=== PATIENT | male | born 1950 | race Caucasian/White ===

== ENCOUNTER 2020-03-19 10:06 | Inpatient (IN) | payer OTHER, MEDICARE ==
[2020-03-19] MEDS ORDERED: Milk Of Magnesia 30 ML UDCUP PO PRN (12:56)
[2020-03-19] MEDS ORDERED: Electrolyte Replacement Protoc 1 EACH EACH IVPB ONE (12:56)
[2020-03-19] MEDS ORDERED: Ondansetron PF 4 MG/2 ML Vial IVP PRN (12:56)
[2020-03-19] MEDS ORDERED: Bisacodyl 10 MG SUPP PR PRN (12:56)
[2020-03-19] MEDS ORDERED: Docusate 100 MG CAP PO PRN (12:56)
[2020-03-19] MEDS ORDERED: Electrolyte Replacement Protocol FS PRN (13:30)
[2020-03-19] MEDS: hydrALAZINE 20 MG/ML VIAL SLOW IVP PRN (13:46)
[2020-03-19] MEDS: Sodium Chloride 0.9% 1,000 ML IV SCH (13:46)
[2020-03-19] MEDS: niCARdipine 25 MG in Sodium Chloride 0.9% 250 ML 250 ML IVPB PRN ×2 (13:51→22:56)
--- NOTE | 2020-03-19 15:29 | CT ---
CT BRAIN WITHOUT CONTRAST: 03/19/20 HISTORY: Intracerebral hemorrhagic stroke. COMPARISON: earlier exam same date 9:49 am FINDINGS: There is continued acute intraventricular hemorrhage with probable extension into the left frontal lo be and basal ganglia. Associated mild obstructive hydrocephalus is again seen. No new areas of hemorr dana are noted. There has been interval worsening of midline shift to the right currently measuring 7 mm compared to 5 mm on the earlier exam of 9:49 a.m. from the same date. IMPRESSION: Mild interval worsening of subfalcine herniation since earlier exam of same date. POS: VERONICADI
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
[2020-03-19] MEDS: Diltiazem 125 MG in Sodium Chloride 0.9% 100 ML IVPB SCH (18:13)
[2020-03-19] MEDS ORDERED: Loratadine 10 MG TAB PO PRN (18:25)
[2020-03-19] MEDS: Famotidine/PF 20 mg/2ml Vial SLOW IVP SCH (22:56)
[2020-03-20] MEDS: Sodium Chloride 0.9% 1,000 ML IV SCH ×2 (03:12→15:46)
[2020-03-20 03:58] LABS: #Lymphocytes 1.3 thou/uL (1.20-3.40); #Monocytes 1.2 thou/uL (0.11-0.59); #Neutrophils 8.8 thou/uL (1.40-6.50); %Basophils 0.3 % (0.0-1.0); %Eosinophils 0.4 % (0.0-10.0); %Lymphocytes 11.2 % (21.0-51.0); %Monocytes 10.9 % (0.0-10.0); %Neutrophils 77.2 % (42.0-75.0); Hemoglobin 14.6 g/dL (14.0-18.0); Mean Corpuscular HGB CONC 32.5 g/dL (32.0-36.0); Mean Corpuscular Hemoglobin 30.9 pg (27.0-31.0); Mean Corpuscular Volume 94.9 fL (78.0-98.0); Mean Platelet Volume 9.3 fL (7.4-10.4); Platelet Count 136 thou/uL (130-400); RBC Distribution Width 11.5 % (11.5-14.5); Red Blood Cell (RBC) Count 4.74 mill/uL (4.70-6.10); White Blood Cell (WBC) Count 11.4 thou/uL (4.8-10.8)
[2020-03-20 05:21] LABS: Anion Gap 12 mmol/L (10-20); BUN (Urea Nitrogen) 19 mg/dL (8.4-25.7); Calc. Creatinine Clearance 121 mL/min (70-130); Calcium 8.5 mg/dL (7.8-10.44); Carbon Dioxide 22 mmol/L (23-31); Chloride 104 mmol/L (98-107); Estimated GFR-MDRD Greater than 90; Glucose 127 mg/dL (80-115); Potassium 3.8 mmol/L (3.5-5.1); Sodium 134 mmol/L (136-145)
--- NOTE | 2020-03-20 05:50 | HP ---
HISTORY OF PRESENT ILLNESS: Mr. Aguilera is a 69-year-old man transferred over to [facility] directly admitting to the ICU from [facility] for sudden onset of confusion and CT showing a large intraventricular hemorrhage cast in the near total left lateral ventricle, 3rd ventricle, and 4th ventricles with very early signs of potential hydrocephalus reported by the ER physician at [facility]. The patient came in at the request of his cloth spreader, as the patient had onset of confusion after recently being diagnosed with atrial fibrillation and started Eliquis and Cardizem and one other medication that is unspecified. He obliged and this is where his intracranial hemorrhage was found. PAST MEDICAL HISTORY: Significant for atrial fibrillation and hypertension. PAST SURGICAL HISTORY: Includes unspecified elbow, shoulder, and cataracts. SOCIAL HISTORY: The patient drinks socially daily. Denies drug use. Currently smokes cigarettes daily, 30-year history of half pack a day. ALLERGIES: NO KNOWN DRUG ALLERGIES. CURRENT MEDICATIONS: 1. Diltiazem. 2. Multaq. 3. Eliquis. PHYSICAL EXAMINATION: VITAL SIGNS: The patient's blood pressure upon arrival was 170/99, this is now done at bedside at 168/80. GENERAL: He is alert, oriented to his name, date of , and knows that he is in the hospital. He does not recall much of this morning's events. He has excellent strength in bilateral upper and lower extremities in all movements. No that I can discern. HEENT: Pupils are equally round and reactive to light. Extraocular movements are intact. PSYCHIATRIC: Speech is fluid and uninhibited. I would rate his GCS at 14 given confusion. ASSESSMENT: Acute intraventricular hemorrhage and altered mental status. PLAN: At this time, we will need to hold the Xarelto and Eliquis indefinitely. Head of bed will need to be elevated to 30 degrees. We will repeat a CT scan at 1400 today to evaluate and stay on top of potential developing hydrocephalus. He will need to remain n.p.o. probably until at least tomorrow. Dysphagia screen will need to be administered at bedside. We will initiate Cardene, titrating to systolic pressures below 140. We will also initiate some p.r.n. blood pressure medications as we try to wean off the Cardene. I did have a discussion with the patient and later his regarding potential need for external ventricular catheter and in case that he does develop acute obstructive hydrocephalus secondary to this hemorrhage. The patient and understand. My hope is that we will not have to do this, but it is a very real possibility, particularly in the next 48 hours. We will likely repeat another scan in the morning to continue track progress of both his ventricular size and hemorrhage development or resolution and adjust plan based on the above findings. Q.1 hour neuro checks for now. Plan will be discussed with Dr. Keyes. We will also consult our colleagues in Critical Care and Inpatient Medicine. Job ID: [id number]
--- NOTE | 2020-03-20 07:12 | CT ---
PRELIMINARY REPORT/[facility]/EMERGENCY AFTER HOURS PROCEDURE This report was discussed with Freda Patel RN by Osiris Candelaria on Mar 20, 2020 03:33:00 CDT. Addendum electronically signed by Osiris Candelaria on March 20, 2020 3:34:39 AM CDT EXAM: CT Head Without Intravenous Contrast. CLINICAL HISTORY: Follow up ICH TECHNIQUE: Axial computed tomography images of the head/brain without intravenous contrast. COMPARISON: CTSR - CT BRAIN WO CON - 03/19/2020 02:58 PM CDT FINDINGS: BRAIN: Unchanged edematous swelling of the left frontal lobe at the anterior cranial fossa creating mild mas s-effect on the suprasellar cistern. Slightly worsened rightward midline shift measuring 9 mm, previously 6 mm without evidence of subfalc ine herniation at this time. VENTRICLES: Unchanged amount of intraventricular hemorrhage primarily affecting the left lateral ventricle with a dditional blood products in the right lateral ventricle and the occipital horn and near the foramen of Santiago. Additional unchanged hemorrhage within the third and fourth ventricles. Unchanged asymmetric dilatation of the left lateral ventricle and temporal horns with periventricular hypodense edema surrounding the frontal horn of the left lateral ventricle. ORBITS: The orbits are unremarkable. SINUSES AND MASTOIDS: The paranasal sinuses and mastoid air cells are clear. SOFT TISSUES: No significant facial or scalp soft tissue swelling evident. No radiopaque foreign body is seen. BONES: No acute skull fracture. IMPRESSION: 1. Slightly increased rightward midline shift by proximal 3 mm without evidence of herniation. 2. Unchanged intraventricular hemorrhage and resulting hydrocephalus detailed above. ELECTRONICALLY SIGNED BY: Brandon Jones DO Mar 20, 2020 3:23:26 AM CDT This report is intended for review by the ordering physician only, in accordance of law. If you recei ve this report in error, please call [facility] at [phone]. FINAL REPORT Exam: Head CT without contrast HISTORY: Follow-up intracranial hemorrhage COMPARISON: 03/19/2020 FINDINGS: Hemorrhage: Stable intraventricular hemorrhage. Brain parenchyma: Cortical varela-white matter differentiation is preserved. No mass effect or midline shift. Basilar cisterns are patent. Ventricular system: Stable dilatation of ventricular system. Stable rightward deviation of the fronta l horn of the lateral ventricle secondary to asymmetric hemorrhage in the left ventricular system. Calvarium: Intact. Sinuses and mastoid air cells: Adequate aeration. IMPRESSION: 1. This report is in agreement with initial report by [facility]. 2. Stable intraventricular hemorrhage. Stable hydrocephalus. Transcribed Date/Time: 03/20/2020 8:27 AM
--- NOTE | 2020-03-20 08:07 | PRG ---
DATE OF SERVICE: SUBJECTIVE: The patient is about the same as he was yesterday. He did develop atrial fibrillation, was put on a Cardizem drip. It looks like to me he has developed a second-degree type 1 heart block. OBJECTIVE: VITAL SIGNS: Temperature 98.1, pulse 78, blood pressure 127/60, O2 saturation 97%. Intake 1737, output 1482. HEENT: Unremarkable. NECK: No adenopathy or JVD. LUNGS: Clear anteriorly. CARDIAC: S1, S2, irregular. ABDOMEN: Soft. EXTREMITIES: No edema. NEUROLOGICAL: His muscle strength is equal throughout. IMAGING STUDIES: His brain CT demonstrates stable intraventricular hemorrhage. ASSESSMENT: 1. Brain bleed. 2. Cardiac arrhythmia-question second-degree type 1 heart block. RECOMMENDATIONS: 1. Decrease Cardizem drip to 5 mg an hour. 2. Hypertensive control per Internal Medicine. 3. Can transfer out of floor when okay with Neurosurgery. Job ID: [id number]
--- NOTE | 2020-03-20 08:30 | PRG ---
DATE OF SERVICE: 03/20/2020 Mr. Aguilera again was admitted yesterday for acute intraventricular hemorrhage. Repeat CT scan early this morning around 3 a.m. reveals again some slight interval changes compared to the CT before that, which again was a change from the CT yet before then itself. He has had some marginal progression and some expansion of the left lateral ventricle, which will need to continue to keep a close eye on, but his neurologic status continues to be stable. He is able to tell me his name, his date of , the day of the week, the year. He recognizes he is in the hospital, but is unable to tell me where exactly he is in and admits that he does not know. Some of this very likely could represent some expressive aphasia. There was a concern overnight about pupil irregularity or asymmetry. To me at bedside, pupils appear to be equal in size with some slight difference in light reaction. He does have a dense cataract in the left eye, perhaps this reduces the briskness of his pupillary response, so I am not terribly concerned about this. He is able to talk through to me that he expects to have that surgically treated sometime in the near future. He did go back into AFib yesterday, but hospitalists started Cardizem to treat this, and he looks to be in good rhythm this morning. Heart rate of 90. Systolic pressures have been down in the one-teens to 120s, which is fantastic. Plan will be to continue to have him in the ICU for the time being as we watch for potential obstructive hydrocephalus. Again, hopefully, this does not come to pass, but we are prepared in case it does. At some point in the next 48 hours, if he remains stable, we will likely be able to transition him out of the ICU. Labs from this morning all appear well. He is very slightly hyponatremic at 134. We will need to continue to watch this. No additional concerns at this time. Job ID: [id number]
[2020-03-20] MEDS ORDERED: Prevnar 13-Val Conj/PF 0.5 ML SYRINGE IM ONE (09:00)
[2020-03-20] MEDS: Famotidine/PF 20 mg/2ml Vial SLOW IVP SCH ×2 (09:40→21:40)
[2020-03-20] MEDS: Dronedarone HCl 400 MG TAB PO SCH ×2 (09:40→17:24)
[2020-03-20] MEDS: Lisinopril 10 MG TAB PO SCH (09:40)
--- NOTE | 2020-03-20 11:31 | PQF ---
Patient Name: VALERIA SUTTON Date of : 1950 Account: [id number] Admit Date: 03/19/2020 Facility: [facility] CLINICAL DOCUMENTATION CLARIFICATION FORM: Dear MICHELINE Soto Date 03/20/20 Please exercise your independent, professional judgment in responding to the clarification form. Clinical indicators are provided on the bottom of this form for your review. Please check appropriate box(es): [ ] Cerebral edema / Vasogenic edema [ ] Compression of brain [ x ] Other diagnosis __Intraventricular hemorrhage [ ] Unable to determine In addition, please specify: Present on Admission (POA): [ x ] Yes [ ] No [ ] Unable to determine For continuity of documentation, please document condition throughout progress notes and discharge summary. Thank You. To be completed by CDI/Coding staff for physician review: BRAIN CT 03/20: "EDEMATOUS SWELLING OF THE LEFT FRONTAL LOBE AT THE ANTERIOR CRANIAL FOSSA CREATING MILD MASS-EFFECT ON THE SUPRASELLAR CISTERN." "SLIGHTLY WORSENED RIGHTWARD MIDLINE SHIFT" RISKS: INTRAVENTRICULAR HEMORRHAGE (H&P) AFIB WITH H/O ELIQUIS (H&P) TREATMENT: BRAIN CT 03/19, 03/20 CRITICAL CARE MONITORING IV APRESOLINE (03/19-PRESENT) IV CARDENE (03/19) CDS/Broke Beater Machine Operator Signature: Quyen Callahan RN Phone # [phone] Date/Time: 03[facility]20/20 [facility]
--- NOTE | 2020-03-20 12:45 | EKG ---
Test Reason : Blood Pressure : / mmHG Vent. Rate : 088 BPM Atrial Rate : 258 BPM P-R Int : 000 ms QRS Dur : 092 ms QT Int : 376 ms P-R-T Axes : 000 070 074 degrees QTc Int : 454 ms Atrial fibrillation with premature ventricular or aberrantly conducted complexes Abnormal ECG When compared with ECG of 20-DEC-2007 06:28, Atrial fibrillation has replaced Sinus rhythm T wave amplitude has decreased in Anterior leads Confirmed by DANIELLA MURRAY, SDerrek ([id number]) on 03/20/2020 12:44:58 PM Referred By: ELZBIETA Confirmed By:DR. Radha BREWER MD
--- NOTE | 2020-03-20 14:50 | CON ---
DATE OF CONSULTATION: 03/20/2020 PRIMARY CARE PHYSICIAN: Glen King MD PRIMARY RADIOGRAPHER CARDIAC CATHETERIZATION: Markos Walsh MD REASON FOR CONSULTATION: Atrial fibrillation, atrial flutter. HISTORY OF PRESENT ILLNESS: Mr. Aguilera is a pleasant 69-year-old white male who was initially admitted to [facility] last week with typical atrial flutter and atrial fibrillation. He was discharged on March 13 on diltiazem, Multaq, and Eliquis 5 mg b.i.d. On the day of admission, he developed balance issues and difficulty with speech. He was brought to the emergency department and noted to have intracerebral hemorrhage. Eliquis was discontinued. He was admitted to the ICU and has been followed by the Neurosurgery Service. He currently has mild expressive aphasia. Otherwise, no neurologic deficits. He has no chest discomfort, dyspnea, or syncope. He had a fall at home after his symptoms started. PAST MEDICAL HISTORY: 1. Typical atrial flutter. 2. Paroxysmal atrial fibrillation. MEDICATIONS: 1. Diltiazem. 2. Multaq 400 mg b.i.d. 3. Eliquis 5 mg b.i.d. SOCIAL HISTORY: Current smoker. He is , lives at [place]. They take care of several small grandchildren. REVIEW OF SYSTEMS: No melena, bright red blood per rectum, or hematemesis. No seizures, orthopnea, or edema. PHYSICAL EXAMINATION: GENERAL: Alert and oriented x4. No apparent distress. No expressive aphasia currently. HEENT: No lesions. Sclerae clear. SKIN: No lesions. VITAL SIGNS: Temperature 98.0, pulse 66, respiratory rate 12, blood pressure 105/58. LUNGS: Clear to auscultation bilaterally. CARDIOVASCULAR: Irregularly irregular rhythm. No murmurs, gallops, or rubs. EXTREMITIES: No cyanosis, clubbing, or edema. LABORATORY DATA: EKG, atrial fibrillation with controlled ventricular response. IMPRESSION AND PLAN: 1. Intracerebral hemorrhage, on Eliquis. He only received 5 days of Eliquis at the time of his hemorrhage. 2. Paroxysmal atrial fibrillation, now persistent. 3. Typical atrial flutter, now in atrial fibrillation. RECOMMENDATION: 1. Hold Eliquis. 2. Diltiazem for rate control. He has preserved left ventricular systolic function. Job ID: [id number]
[2020-03-20] MEDS: Acetaminophen 325 MG TAB PO PRN (15:46)
[2020-03-20] MEDS: niCARdipine 25 MG in Sodium Chloride 0.9% 250 ML 250 ML IVPB PRN (18:32)
--- NOTE | 2020-03-20 19:42 | CON ---
DATE OF CONSULTATION: REASON FOR CONSULTATION: Medical management. BRIEF HISTORY OF PRESENT ILLNESS: This is a 69-year-old male with a past medical history of hypertension and atrial fibrillation, who was transferred over to [facility] from [facility] due to acute onset of confusion. CT at outside hospital showed a large intraventricular hemorrhage in the left ventricle, third ventricle and fourth ventricles with early signs of hydrocephalus. The patient initially was brought in due to confusion after he was recently started on Eliquis and Cardizem for a new diagnosis of atrial fibrillation. Currently, the patient denies any headaches. Denies any nausea or vomiting. The patient still appears to be confused. He states he knows that today is and the month is March. He is not aware of the year. PAST MEDICAL HISTORY: Atrial fibrillation and hypertension. PAST SURGICAL HISTORY: Elbow, shoulder, and cataract surgery. SOCIAL HISTORY: The patient drinks daily. He is a current 30-year history of half a pack a day smoking. FAMILY HISTORY: Unable to obtain. CURRENT INPATIENT MEDICATIONS: 1. Diltiazem drip 2. Nicardipine drip. 3. Amiodarone 400 mg p.o. b.i.d. 4. Diltiazem 180 mg p.o. daily. PHYSICAL EXAMINATION: VITAL SIGNS: Temperature 98.4, blood pressure 117/82, respiratory rate 25, and O2 saturation 94% on room air. GENERAL: The patient is alert. He is oriented to person, city, month and day but not to year. He is aware of the president. NEUROLOGIC: The patient cranial nerves 2 through 12 are intact. He is moving all 4 extremities. He has 5/5 strength in all 4 extremities. He has intact sensation in all 4 extremities. CVS: Regular rate and rhythm with no murmurs, rubs, or gallops. LUNGS: Clear to auscultation bilaterally. ABDOMEN: Positive bowel sounds. Soft, nontender, and nondistended. EXTREMITIES: No edema. PERTINENT LABORATORY DATA: CBC on 03/20: White count 11.4, hemoglobin 14.6, hematocrit 45.0, and platelet count 136. BMP on 03/20: Sodium 134, potassium 3.8, chloride 104, bicarb 22, BUN 19, and creatinine 0.75. IMAGING: Chest x-ray on 03/19: No acute process. CT of brain on 03/20: 1. Increased rightward midline shift by 3 cm without evidence of herniation. 2. Unchanged intraventricular hemorrhage and resulting hydrocephalus. ASSESSMENT: This is a 69-year-old male with past medical history of hypertension, who presented with intracranial hemorrhage with hydrocephalus and midline shift after starting on Eliquis. PLAN: 1. Acute encephalopathy secondary to intraventricular hemorrhage with hydrocephalus and midline shift: Neurosurgery has been consulted and currently not recommending any intervention given that he is neurologically intact. Consider serial CT scans for further evaluation. 2. Hypertensive emergency: The patient has been placed on a nicardipine drip. I have resumed the patient's oral lisinopril 10 mg p.o. daily in attempt to wean off the nicardipine drip. He was also on a diltiazem drip, which was weaned off due to concern for AV block this a.m. He was switched to oral diltiazem 180 mg p.o. daily. We will continue to keep his blood pressures less than 140. 3. Atrial fibrillation: Continue Multaq and oral diltiazem. 4. Leukocytosis: The patient's white count is 11.4. His chest x-ray was unremarkable. We will check a UA: Most likely his leukocytosis is reactive secondary to his hemorrhage. 5. Hyponatremia: The patient's sodium is 134. We will continue to monitor. We will continue to follow this patient with you. Thank you for this consultation. Job ID: [id number] MTDD
[2020-03-20] MEDS ORDERED: niCARdipine 25 MG in Sodium Chloride 0.9% 250 ML 240 ML IVPB PRN (21:38)
[2020-03-21 03:23] LABS: Hemoglobin 14.2 g/dL (14.0-18.0); Mean Corpuscular HGB CONC 33.4 g/dL (32.0-36.0); Mean Corpuscular Hemoglobin 31.2 pg (27.0-31.0); Mean Corpuscular Volume 93.5 fL (78.0-98.0); Mean Platelet Volume 8.2 fL (7.4-10.4); Platelet Count 174 thou/uL (130-400); RBC Distribution Width 11.5 % (11.5-14.5); Red Blood Cell (RBC) Count 4.54 mill/uL (4.70-6.10); White Blood Cell (WBC) Count 11.7 thou/uL (4.8-10.8)
[2020-03-21 03:51] LABS: Anion Gap 13 mmol/L (10-20); BUN (Urea Nitrogen) 19 mg/dL (8.4-25.7); Calc. Creatinine Clearance 117 mL/min (70-130); Carbon Dioxide 20 mmol/L (23-31); Chloride 104 mmol/L (98-107); Estimated GFR-MDRD Greater than 90; Glucose 148 mg/dL (80-115); Potassium 3.7 mmol/L (3.5-5.1); Sodium 133 mmol/L (136-145)
--- NOTE | 2020-03-21 07:56 | PRG ---
DATE OF SERVICE: 03/21/2020 SUBJECTIVE: The patient remains in the ICU, being monitored for obstructive hydrocephalus from brain bleed. He has no complaints. OBJECTIVE: VITAL SIGNS: Temperature 97.9, pulse 90, blood pressure 133/82, and O2 saturation 96% room air. He is on a Cardizem drip at 5 mg/hour. His total intake was 1721, output 1960. HEENT: Unremarkable. Pupils equal size. Oropharynx clear. Tongue midline. NECK: No adenopathy or JVD. LUNGS: Clear. CARDIAC: S1 and S2. Irregularly irregular. ABDOMEN: Soft. EXTREMITIES: No edema. LABORATORY DATA: White blood cell count 11.7, hematocrit 42.4, and platelet count 174. Sodium 133, potassium 3.7, chloride 104, CO2 of 20, BUN 19, creatinine 0.7, and glucose 148. ASSESSMENT: 1. Chronic atrial fibrillation. 2. Status post brain bleed. 3. Hypertensive emergency, resolved. PLAN: Mainly a Neurosurgical, Cardiology, and Internal Medicine issue. The patient has no pulmonary issues. Once stable from a neurologic standpoint, he can be transferred to the floor. No additional recommendations at this time. Job ID: [id number]
[2020-03-21 07:58] LABS: Bacteria/HPF 1+ HPF (None Seen); Bilirubin Negative (Negative); Blood, Urine 1+ (Negative); Clarity Clear (Clear); Glucose, Urine (Dipstick) Normal (Negative); Ketone, Urine Negative (Negative); Leukocyte 75 Leu/uL (Negative); Nitrite Negative (Negative); Protein, Urine (Dipstick) 20 mg/dL (Neg-Trace); Specific Gravity, Urine 1.024 (1.002-1.036); Squamous Epithelial None Seen HPF (0-3); Urobilinogen Normal mg/dL (Less than 2); pH, Urine 5.5 (5.0-9.0)
[2020-03-21 07:59] LABS: Urine Culture Reflex Yes Yes
[2020-03-21] MEDS: Sodium Chloride 0.9% 1,000 ML IV SCH ×2 (08:32→14:58)
[2020-03-21] MEDS: Dronedarone HCl 400 MG TAB PO SCH ×2 (08:57→17:35)
[2020-03-21] MEDS: Famotidine/PF 20 mg/2ml Vial SLOW IVP SCH ×2 (09:01→21:23)
[2020-03-21] MEDS: Lisinopril 10 MG TAB PO SCH (09:22)
[2020-03-21] MEDS: Labetalol HCl 100 MG/20 ML VIAL SLOW IVP PRN ×2 (10:10→23:02)
--- NOTE | 2020-03-21 11:34 | PRG ---
DATE OF SERVICE: 03/21/2020 Mr. Aguilera is a 69-year-old gentleman who presented 2 days ago with an intraventricular hemorrhage. He has been in the ICU ever since, and we have been watching him carefully. Clinically, he has remained stable. He has had 2 head CTs performed since arrival, both of which showed fairly extensive intraventricular hemorrhage with a predominant towards the left side. He does have a slight degree of ventriculomegaly and prominence of the temporal horns. Despite his radiographic findings, clinically, he has been stable. He is awake and he is interactive, although occasionally slow at times and occasionally dysarthric. The plan over the next couple of days is to keep him in the ICU and remain watchful for concerns over worsening and symptomatic hydrocephalus. We made him aware that should he decline, he may need a ventriculostomy. We have one at the bedside in case one needs to be placed. Currently, however, given his neurologic exam, I do not believe it is warranted to place one. The Medicine Team as well as our Pulmonary/Critical Care colleagues have been following along as well. Job ID: [id number]
--- NOTE | 2020-03-21 13:00 | CT ---
CT BRAIN WITHOUT CONTRAST: Date: 03/21/2020 HISTORY: Intracranial hemorrhage, right leg weakness. Unable to move right leg. FINDINGS/IMPRESSION: No significant interval change is seen since the previous day's exam. POS: [facility]
--- NOTE | 2020-03-21 15:34 | RAD ---
RIGHT KNEE FOUR VIEWS: 03/21/20 HISTORY: Right knee swelling. FINDINGS/IMPRESSION: Degenerative changes are present. There is fullness in the suprapatellar pouch consistent with a join t effusion. No fracture, dislocation, or bony destruction is seen. POS: [facility]
[2020-03-21] MEDS ORDERED: Lidocaine 1% (PF) 30 ML VIAL SC SCH (16:00)
--- NOTE | 2020-03-21 17:23 | OP ---
DATE OF PROCEDURE: 03/21/2020 PROCEDURE PERFORMED: Arthrocentesis of the right knee. INDICATION FOR PROCEDURE: This is a 69-year-old male, who has been indicated for the above-mentioned procedure. He was noted to have a 3+ knee effusion on exam today. We were asked to evaluate the patient and rule out hemarthrosis versus septic arthritis. DESCRIPTION OF PROCEDURE: Informed consent was obtained. The patient was prepped with a Betadine swabstick. He was given a local anesthetic of 1% lidocaine in the amount of 6 mL. Once local anesthesia was achieved, an 18-gauge needle was inserted in the superolateral region and joint fluid was aspirated in the amount of 120 mL. This appeared cloudy. This was sent to the lab for further joint analysis including cell count, crystal, Gram stain and culture. 4x4s were applied and pressure dressing was applied to the knee with a 6-inch Arthur wrap. The patient tolerated the procedure well. No complications were incurred. Job ID: [id number]
[2020-03-21] MEDS: cefTRIAXone\\ROCEPHIN 2 GM in Sodium Chloride 0.9% 100 ML IVPB SCH (17:34)
[2020-03-21] MEDS: hydrALAZINE 20 MG/ML VIAL SLOW IVP PRN (17:35)
--- NOTE | 2020-03-21 17:42 | CON ---
DATE OF CONSULTATION: 03/21/2020 This is Cici Otto PA-C dictating a report for Zak Alfaro MD. REQUESTING PHYSICIAN: Critical Care team, Dr. Joce Guzman. CONSULTING PHYSICIAN: Zak Alfaro MD REASON FOR CONSULTATION: Right knee efffusion. HISTORY OF PRESENT ILLNESS: This is a 69-year-old gentleman, who presented approximately 4 days ago with interventricular hemorrhage. He has been in the ICU his entire stay. He has remained stable. He has had multiple head CTs performed since arrival, which showed extensive intraventricular hemorrhage with predominant shift toward the left side. Despite these findings, he has been clinically stable. Physical therapy was ordered on him today, and when physical therapy came to work with him, he noted that he had a very large right knee fusion. We have been consulted for this reason. Currently at bedside, the patient is interactive. He does answer questions. He states that his right knee hurts. He reports having an old knee surgery done on this leg many, many years ago, for which he does not know why. This was apparently done by Dr. Zafar. He denies any falls or trauma. PAST MEDICAL HISTORY: Significant for atrial fibrillation and hypertension. PAST SURGICAL HISTORY: Elbow, shoulder, knee, and cataract. SOCIAL HISTORY: The patient drinks socially daily. He denies drug use. Currently smokes cigarettes daily with a 30-year half-pack a day history. ALLERGIES: NO KNOWN DRUG ALLERGIES. CURRENT MEDICATIONS: 1. Diltiazem. 2. Multaq. 3. Eliquis. PHYSICAL EXAMINATION: VITAL SIGNS: Currently, blood pressure 152/95, pulse 89, respiratory rate 20, and temperature 98.7. GENERAL: The patient is awake. He appears alert. He does answer questions appropriately. HEENT: Head is normocephalic and atraumatic. NECK: Supple. Trachea is midline. RESPIRATORY: Breathing is nonlabored. EXTREMITIES: Evaluation of all 4 extremities shows spontaneous movement in the upper extremities. The right lower extremity is noted to have a 3+ knee fusion. The patient does have difficulty with any movement of this knee. He held it in a position of slight flexion. There is no soft tissue swelling distally. No edema. He does move his foot and toes well. Distal neurovascular status intact. The skin overlying the knee is intact. No abrasions or injuries are noted. No erythema. No ecchymosis. Pain elicited with passive range of motion. Pain also elicited with a log-roll maneuver of the right lower extremity. Left lower extremity evaluated for contralateral comparison. No injuries, deformities or swelling are as noted to the left lower extremity. LABORATORY DATA: Reviewed today including CBC shows white blood cell count of 11.7, hemoglobin of 14.2, hematocrit of 42.4, and platelet count of 174. UA shows 1+ blood as well as 1+ bacteria and some leukocyte esterase in his urine. Radiographic imaging including views of the right knee were also obtained. These show some early degenerative changes. No acute fractures. There is a large knee effusion seen. ASSESSMENT: Right knee fusion and the patient is currently on Eliquis with a brain bleed. PLAN: At this time, we will go ahead and aspirate the patient's right knee in order to send fluid to the lab for further analysis. Risks, benefits, and alternatives of this procedure discussed with the patient. He is amenable to this. I will put in an order for consent. This will be obtained through the nursing staff due to the patient's condition. We will see what the laboratory data shows on this aspirate. This is also for therapeutic maneuver as this will cause him a great deal of pain relief. Job ID: [id number] [facility]
--- NOTE | 2020-03-21 18:20 | PDOC.HOSPP ---
- Subjective Encounter Date: 03/21/20 Encounter Time: 09:00 Subjective: THe patient appears to be more drowsy today. He denies complaints. He does not know the year but knows the president. He does follow some commands Patient states he is hungry and wants to eat food - Objective Vital Signs & Weight: Vital Signs (12 hours) Temp Pulse Pulse Pulse BP BP BP 03/21/20 17:35 96 149/86 H 03/21/20 15:00 98.7 F 03/21/20 14:40 90 93 145/88 H 111/85 03/21/20 14:04 133/80 03/21/20 11:00 98.4 F 03/21/20 10:10 96 149/86 H 03/21/20 09:22 149/86 H 03/21/20 08:00 03/21/20 07:00 98.2 F Pulse Ox Pulse Ox Pulse Ox 03/21/20 17:35 03/21/20 15:00 03/21/20 14:40 97 97 03/21/20 14:04 03/21/20 11:00 03/21/20 10:10 03/21/20 09:22 03/21/20 08:00 96 03/21/20 07:00 Weight Admit Weight 195 lb Weight 195 lb 8.8 oz Most Recent Monitor Data Heart Rate from ECG 105 NIBP 144/96 NIBP BP-Mean 112 Respiration from ECG 30 SpO2 95 I&O: 03/20/20 03/21/20 03/22/20 06:59 06:59 06:59 Intake Total 1737.5 1721 120 Output Total 1482 1960 835 Balance 255.5 -239 -715 Result Diagrams: 03/21/20 03:14 03/21/20 03:14 Hospitalist ROS - Review of Systems Constitutional: denies: fever, chills Eyes: reports: other. denies: pain, vision change - Medication Medications: Active Medications Generic Name Dose Route Start Last Admin Trade Name Freq PRN Reason Stop Dose Admin Acetaminophen 650 mg 03/19/20 12:56 03/20/20 15:46 Tylenol PO 650 mg Q6H PRN Administration Fever > 101 or Headache Diltiazem HCl 180 mg 03/20/20 09:00 03/21/20 08:58 Cardizem Cd PO Not Given DAILY EVITA Dronedarone 400 mg 03/20/20 08:00 03/21/20 17:35 Multaq PO 400 mg BID-WM EVITA Administration Famotidine 20 mg 03/19/20 21:00 03/21/20 09:01 Pepcid SLOW IVP 20 mg Q12HR EVITA Administration Hydralazine HCl 5 mg 03/19/20 12:56 03/21/20 17:35 Apresoline SLOW IVP 5 mg Q15MIN PRN Administration sbp>140 Sodium Chloride 1,000 mls @ 80 mls/hr 03/19/20 13:00 03/21/20 14:58 Normal Saline 0.9% IV Not Given .[id number] EVITA Diltiazem HCl 125 mg/ Sodium 125 mls @ 5 mls/hr 03/19/20 17:45 03/19/20 18:13 Chloride IVPB 125 mls INF EVITA Administration Ceftriaxone Sodium 2 gm/ 100 mls @ 200 mls/hr 03/21/20 17:00 03/21/20 17:34 Sodium Chloride IVPB 100 mls Q24HR EVITA Administration Labetalol HCl 10 mg 03/19/20 12:56 03/21/20 10:10 Normodyne SLOW IVP 10 mg Q4H PRN Administration SBP > 140 Lisinopril 10 mg 03/20/20 09:00 03/21/20 09:22 Zestril PO Not Given DAILY EVITA - Exam General Appearance: NAD, awake alert Eye: PERRL, anicteric sclera ENT: normocephalic atraumatic, no oropharyngeal lesions Neck: supple, no JVD Heart: RRR, no murmur, no gallops, no rubs Respiratory: CTAB, no wheezes, no rales, no ronchi Gastrointestinal: soft, non-tender, non-distended, normal bowel sounds Extremities: no cyanosis, no clubbing, no edema Skin: normal turgor, no lesions, no rashes Neurological: cranial nerve grossly intact, normal sensation to touch, no focal deficits, no new deficit Neurological - other findings: patient unable to move his right leg, does not withdraw to pain. Musculoskeletal: normal tone, normal strength, no muscle wasting Musculoskeletal - other findings: Lifts arms to c ommands, left leg withdraws to pain. Right knee Psychiatric: normal affect, normal behavior, A&O x 3, oriented to person Hosp A/P - Plan CT brain 03/20: increase rightward midline shift 3 cm without herniation. Unchanged IVH and resulting hydrocephalus Right knee X ray: right knee joint effusion This is a 69 year old male with past medical history of atrial fibrillation who presented with confusion after recently being started on eliquis, found to have intraventricular hemorrhage with hydrocephalus and midline shift Acute encephalopathy secondary to intraventricular hemorrhage with hydrocephalus - repeat CT head is stable. Right leg was weaker today and patient has fluctuating mental status. Discussed with Dr. Keyes, will check another CT head tomorrow, monitor for worsening mental status Hypertensive emergency - patient is on lisinopril 10 mg daily, BP was in the 120's - he is off drips now - continue diltiazem 180 mg daily Right knee swelling/pain - noted to be warm and tender to palpation. Ortho has taken to OR to rule out septic arthritis - continue ceftriaxone Hyponatremia - sodium 133, will monitor Nutrition - speech has seen patient and advanced diet to chopped diet
--- NOTE | 2020-03-21 18:52 | PDOC.EVN ---
Event Note - Event Note Event Note: Spoke to and updated her on ct head findings and knee arthrocentesis and physical condition. She had no questions
[2020-03-21 20:51] LABS: Synovial Fluid, Protein 4.1 g/dL (Not Available)
[2020-03-21 21:21] LABS: RBC Count-Automated (BF) 2326 /cu.mm; WBC/Nucleated-Auto (BF) 36378 uL
[2020-03-21 21:32] LABS: Body Fluid Source Synovial Fluid; Tube # EDTA
[2020-03-21 21:33] LABS: BF Color Yellow; Clarity Cloudy/Turbid (Clear)
[2020-03-21 21:34] LABS: BF Segmented Neutrophils 91 %; Cell Count Non Hematic 8 %; Lymphocytes 1 %
[2020-03-22] MEDS: Acetaminophen 325 MG TAB PO PRN (01:33)
[2020-03-22 04:16] LABS: Mean Corpuscular HGB CONC 33.3 g/dL (32.0-36.0); Mean Corpuscular Hemoglobin 31.3 pg (27.0-31.0); Mean Corpuscular Volume 93.9 fL (78.0-98.0); Mean Platelet Volume 9.3 fL (7.4-10.4); Platelet Count 146 thou/uL (130-400); RBC Distribution Width 11.5 % (11.5-14.5); Red Blood Cell (RBC) Count 4.14 mill/uL (4.70-6.10); White Blood Cell (WBC) Count 9.9 thou/uL (4.8-10.8)
[2020-03-22 04:39] LABS: Anion Gap 12 mmol/L (10-20); BUN (Urea Nitrogen) 16 mg/dL (8.4-25.7); Calc. Creatinine Clearance 130 mL/min (70-130); Calcium 7.9 mg/dL (7.8-10.44); Carbon Dioxide 19 mmol/L (23-31); Chloride 106 mmol/L (98-107); Estimated GFR-MDRD Greater than 90; Glucose 119 mg/dL (80-115); Potassium 3.5 mmol/L (3.5-5.1); Sodium 133 mmol/L (136-145)
[2020-03-22] MEDS: Sodium Chloride 0.9% 1,000 ML IV SCH ×2 (06:16→16:50)
[2020-03-22] MEDS: Labetalol HCl 100 MG/20 ML VIAL SLOW IVP PRN (06:19)
[2020-03-22] MEDS ORDERED: Potassium Chloride 20 MEQ TAB PO SCH (07:00)
[2020-03-22] MEDS: Diltiazem 125 MG in Sodium Chloride 0.9% 100 ML IVPB SCH (07:44)
--- NOTE | 2020-03-22 07:49 | CT ---
PRELIMINARY REPORT/[facility]/EMERGENCY AFTER HOURS PROCEDURE: EXAM: CT Head Without Intravenous Contrast. CLINICAL HISTORY: F/ U Intracranial hemorrhage TECHNIQUE: Axial computed tomography images of the head/brain without intravenous contrast. COMPARISON: CT\SR - CT BRAIN WO - 03/21/2020 12:[address]\MD\SR - CT BRAIN WO CON - 03/19/2020 02:58 PM CDT FINDINGS: BRAIN: No significant interval change in multifocal intracranial hemorrhage. Bilateral superior frontal cortical contusion with subarachnoid component. Left greater than right l ateral ventricle intraventricular hemorrhage. Left frontal intraparenchymal hemorrhage with surround ing vasogenic edema. Hemorrhage within the third and fourth ventricles. 9 mm left to right midline shift which is unchanged from prior. VENTRICLES:Unchanged hydrocephalus. ORBITS: The orbits are unremarkable. SINUSES AND MASTOIDS: Scattered opacification of the ethmoid air cells. SOFT TISSUES: No significant facial or scalp soft tissue swelling evident. No radiopaque foreign body is seen. BONES: No acute skull fracture. IMPRESSION: Multifocal intracranial hemorrhage without significant interval change from prior. 9 mm left to righ t midline shift is stable. No subfalcine herniation at this time. ELECTRONICALLY SIGNED BY: Joe Soliz M.D. Mar 22, 2020 5:08:01 AM CDT This report is intended for review by the ordering physician only, in accordance of law. If you recei ve this report in error, please call [facility] at [phone]. FINAL REPORT EMERGENCY AFTER HOURS BRAIN CT WITHOUT IV CONTRAST 0448 hours 03/22/2020 COMPARISON: 03/21/2020. FINDINGS: Stable left basal ganglia intraparenchymal hematoma and extensive intraventricular hemorrhage with so me subtle subarachnoid hemorrhagic changes with 0.7 cm of midline shift to the right. No evidence for new hemorrhagic focus. IMPRESSION: Stable hemorrhage. This report is in agreement with preliminary report by [facility]. POS: RRE
--- NOTE | 2020-03-22 08:05 | PRG ---
DATE OF SERVICE: 03/22/2020 SUBJECTIVE: The patient remains neurologically stable. He had a repeat head CT today that looks about the same as it did yesterday. He had a right knee arthrocentesis yesterday for significant effusion. It looks like that effusion has reaccumulated. OBJECTIVE: VITAL SIGNS: Temperature 99, pulse 104, blood pressure 131/83, and O2 saturation 97%. HEENT: Unremarkable. NECK: No JVD. LUNGS: Clear. CARDIAC: S1 and S2. Irregular, on a Cardizem drip. ABDOMEN: Soft and nontender. EXTREMITIES: Right knee effusion noted. LABORATORY DATA: Sodium 133, potassium 3.5, chloride 106, CO2 of 19, BUN 16, creatinine 0.7, and glucose 119. White blood cell count 9.9, hematocrit 38.9, and platelet count 146. Knee fluid showed significant leukocytosis. ASSESSMENT: 1. Right knee effusion, etiology unknown. 2. Status post intracranial bleed. 3. Chronic atrial fibrillation, anticoagulation being held. 4. Hypertensive emergency, resolved. 5. Encephalopathy. PLAN: No active pulmonary issues. He was empirically put on Rocephin yesterday for coverage of possible infected right knee space. We will continue to follow. Job ID: [id number]
[2020-03-22] MEDS: Dronedarone HCl 400 MG TAB PO SCH ×2 (09:01→16:50)
[2020-03-22] MEDS: Lisinopril 10 MG TAB PO SCH (09:02)
[2020-03-22] MEDS: Famotidine/PF 20 mg/2ml Vial SLOW IVP SCH ×2 (09:02→20:07)
--- NOTE | 2020-03-22 09:33 | PRG ---
DATE OF SERVICE: 03/22/2020 SUBJECTIVE: The patient underwent right knee arthrocentesis yesterday. 120 mL of joint fluid was sent to the lab for further analysis. Today, the patient reports continued pain in his right knee. Otherwise, no new events. OBJECTIVE: VITAL SIGNS: Temperature 97.7, pulse of 98, and blood pressure of 150/94. GENERAL: The patient is awake and alert. He does converse with me appropriately. EXTREMITIES: Evaluation of the right knee shows Arthur wrap is present. The patient is able to move approximately 40 degrees of flexion. He holds it in a position of comfort in flexion with a pillow underneath his knee. Distal neurovascular status is intact. LABORATORY DATA: Evaluation of laboratory data today shows synovial fluid analysis and cell count with a white blood cell count of 36,000, red blood cell count of 2000. We are pending culture and further crystal analysis. ASSESSMENT: Right knee effusion, pending lab results. PLAN: At this time, the patient's knee does not appear septic. This also does not appear to be a hemarthrosis. We are pending final lab results, this could possibly be gouty arthritis. We will follow these results out. No surgical intervention is planned at this time. Job ID: [id number]
[2020-03-22] MEDS: hydrALAZINE 20 MG/ML VIAL SLOW IVP PRN (11:12)
--- NOTE | 2020-03-22 11:21 | PDOC.HOSPP ---
- Subjective Encounter Date: 03/22/20 Subjective: The patient is awake and alert and answers questions appropriately. He is able to follow commands and move all of her extremities except for the right lower extremity which is weak. He remains n.p.o. - Objective Vital Signs & Weight: Vital Signs (12 hours) Temp Pulse BP Pulse Ox 03/22/20 11:12 150/94 H 03/22/20 09:02 150/94 H 03/22/20 08:00 97 03/22/20 07:00 97.7 F 03/22/20 06:19 98 150/94 H 03/22/20 04:00 99.0 F Weight Admit Weight 195 lb Weight 194 lb 7.163 oz Most Recent Monitor Data Heart Rate from ECG 90 NIBP 146/93 NIBP BP-Mean 110 Respiration from ECG 19 SpO2 98 I&O: 03/21/20 03/22/20 03/23/20 06:59 06:59 06:59 Intake Total 1721 2149.6 90 Output Total 1960 1695 200 Balance -239 454.6 -110 Result Diagrams: 03/22/20 03:49 03/22/20 03:49 Hospitalist ROS - Medication Medications: Active Medications Generic Name Dose Route Start Last Admin Trade Name Freq PRN Reason Stop Dose Admin Acetaminophen 650 mg 03/19/20 12:56 03/22/20 01:33 Tylenol PO 650 mg Q6H PRN Administration Fever > 101 or Headache Dronedarone 400 mg 03/20/20 08:00 03/22/20 09:01 Multaq PO 400 mg BID-WM EVITA Administration Famotidine 20 mg 03/19/20 21:00 03/22/20 09:02 Pepcid SLOW IVP 20 mg Q12HR EVITA Administration Hydralazine HCl 5 mg 03/19/20 12:56 03/22/20 11:12 Apresoline SLOW IVP 5 mg Q15MIN PRN Administration sbp>140 Sodium Chloride 1,000 mls @ 80 mls/hr 03/19/20 13:00 03/22/20 06:16 Normal Saline 0.9% IV 1,000 mls .[id number] EVITA Administration Diltiazem HCl 125 mg/ Sodium 125 mls @ 5 mls/hr 03/19/20 17:45 03/22/20 07:44 Chloride IVPB 125 mls INF EVITA Administration Ceftriaxone Sodium 2 gm/ 100 mls @ 200 mls/hr 03/21/20 17:00 03/21/20 17:34 Sodium Chloride IVPB 100 mls Q24HR EVITA Administration Labetalol HCl 10 mg 03/19/20 12:56 03/22/20 06:19 Normodyne SLOW IVP 10 mg Q4H PRN Administration SBP > 140 Lisinopril 10 mg 03/20/20 09:00 03/22/20 09:02 Zestril PO 10 mg DAILY EVITA Administration - Exam General Appearance: awake alert ENT: normocephalic atraumatic Neck: no JVD, no carotid bruit Heart: no murmur, no gallops, no rubs, irregular Respiratory: CTAB, no wheezes, no rales, no ronchi, normal chest expansion Gastrointestinal: soft, non-tender Neurological: cranial nerve grossly intact Hosp A/P - Plan 03/21: "Acute encephalopathy secondary to intraventricular hemorrhage with hydrocephalus - repeat CT head is stable. Right leg was weaker today and patient has fluctuating mental status. Discussed with Dr. Keyes, will check another CT head tomorrow, monitor for worsening mental status Hypertensive emergency - patient is on lisinopril 10 mg daily, BP was in the 120's - he is off drips now - continue diltiazem 180 mg daily Right knee swelling/pain - noted to be warm and tender to palpation. Ortho has taken to OR to rule out septic arthritis - continue ceftriaxone Hyponatremia - sodium 133, will monitor Nutrition - speech has seen patient and advanced diet to chopped diet" 03/22: Mental status improving. Start chopped diet with thin liquids with swallowing precautions as recommended by speech therapy. Increase diltiazem to 240 mg orally daily and wean off diltiazem drip as tolerated. Goal of heart rate less than 110. Add clonidine 0.1 mg orally twice daily to lisinopril 10 mg orally daily today to achieve control blood pressure. Continue physical therapy and Occupational Therapy.
[2020-03-22] MEDS ORDERED: Diltiazem HCl SR 60 mg Capsule PO SCH (11:30)
--- NOTE | 2020-03-22 11:39 | PRG ---
DATE OF SERVICE: 03/22/2020 Mr. Aguilera continues to recover from his right-sided intraventricular hemorrhage. He is awake this morning, follows commands and even moves his left side with left upper greater than left lower extremity weakness. However, I am pleased with how he is doing. He has just worked with Physical Therapy. Job ID: [id number]
[2020-03-22] MEDS: cefTRIAXone\\ROCEPHIN 2 GM in Sodium Chloride 0.9% 100 ML IVPB SCH (16:50)
[2020-03-22] MEDS: cloNIDine 0.1 MG TAB PO SCH (20:07)
[2020-03-23] MEDS: Sodium Chloride 0.9% 1,000 ML IV SCH (02:34)
--- NOTE | 2020-03-23 08:16 | PRG ---
DATE OF SERVICE: 03/23/2020 SUBJECTIVE: The patient is much more awake, alert, and conversant today than he has been during his entire hospitalization. OBJECTIVE: VITAL SIGNS: His temperature is 97.8, pulse 81, blood pressure . HEENT: Unremarkable. NECK: No adenopathy or JVD. CHEST: Clear. CARDIAC: S1, S2. Regular. ABDOMEN: Soft. EXTREMITIES: Has a bandage around his right knee. LABORATORY DATA: No labs were drawn today. Knee aspirate has not grown out any organisms. ASSESSMENT: 1. Right knee effusion. 2. Brain bleed while on anticoagulation. 3. Chronic atrial fibrillation. 4. Hypertensive emergency, which is resolved. PLAN: From my standpoint, he can go out to the floor. If the cultures from his knee fluid stay negative through tomorrow, then antibiotics can be stopped. No further pulmonary recommendations at this time. Job ID: [id number]
[2020-03-23] MEDS: Dronedarone HCl 400 MG TAB PO SCH ×2 (08:54→17:27)
[2020-03-23] MEDS: Famotidine/PF 20 mg/2ml Vial SLOW IVP SCH ×2 (09:33→20:30)
[2020-03-23] MEDS: Lisinopril 10 MG TAB PO SCH (09:34)
[2020-03-23] MEDS: cloNIDine 0.1 MG TAB PO SCH ×2 (09:34→20:30)
--- NOTE | 2020-03-23 10:56 | PRG ---
DATE OF SERVICE: 03/23/2020 Mr. Aguilera opens his eyes and is appropriately conversant this morning. He remains neurologically unchanged from my exam yesterday. Frankly, appears to be doing very well. He is not on any antihypertensive infusion, and as such, we will transfer him to the floor to the medical service. We will sign off. Follow up will be with Dr. Keyes per his protocol. Job ID: [id number]
--- NOTE | 2020-03-23 12:37 | PDOC.HOSPP ---
- Subjective Encounter Date: 03/23/20 Subjective: No new events overnight. - Objective Vital Signs & Weight: Vital Signs (12 hours) Temp BP Pulse Ox 03/23/20 09:34 142/84 H 03/23/20 07:53 96 03/23/20 07:00 97.8 F Weight Admit Weight 195 lb Weight 192 lb 0.362 oz Most Recent Monitor Data Heart Rate from ECG 82 NIBP 124/79 NIBP BP-Mean 94 Respiration from ECG 26 SpO2 95 I&O: 03/22/20 03/23/20 03/24/20 06:59 06:59 06:59 Intake Total 2149.6 2947 690 Output Total 1695 1615 485 Balance 454.6 1332 205 Result Diagrams: 03/22/20 03:49 03/22/20 03:49 Hospitalist ROS - Medication Medications: Active Medications Generic Name Dose Route Start Last Admin Trade Name Freq PRN Reason Stop Dose Admin Acetaminophen 650 mg 03/19/20 12:56 03/22/20 01:33 Tylenol PO 650 mg Q6H PRN Administration Fever > 101 or Headache Clonidine 0.1 mg 03/22/20 21:00 03/23/20 09:34 Catapres PO 0.1 mg BID EVITA Administration Diltiazem HCl 240 mg 03/23/20 09:00 03/23/20 09:34 Cardizem Cd PO 240 mg DAILY EVITA Administration Dronedarone 400 mg 03/20/20 08:00 03/23/20 08:54 Multaq PO 400 mg BID-WM EVITA Administration Famotidine 20 mg 03/19/20 21:00 03/23/20 09:33 Pepcid SLOW IVP 20 mg Q12HR EVITA Administration Hydralazine HCl 5 mg 03/19/20 12:56 03/22/20 11:12 Apresoline SLOW IVP 5 mg Q15MIN PRN Administration sbp>140 Ceftriaxone Sodium 2 gm/ 100 mls @ 200 mls/hr 03/21/20 17:00 03/22/20 16:50 Sodium Chloride IVPB 100 mls Q24HR EVITA Administration Labetalol HCl 10 mg 03/19/20 12:56 03/22/20 06:19 Normodyne SLOW IVP 10 mg Q4H PRN Administration SBP > 140 Lisinopril 10 mg 03/20/20 09:00 03/23/20 09:34 Zestril PO 10 mg DAILY EVITA Administration - Exam General Appearance: awake alert ENT: normocephalic atraumatic Neck: supple Heart: RRR Respiratory: normal chest expansion, no tachypnea Neurological: cranial nerve grossly intact Hosp A/P - Plan 03/21: "Acute encephalopathy secondary to intraventricular hemorrhage with hydrocephalus - repeat CT head is stable. Right leg was weaker today and patient has fluctuating mental status. Discussed with Dr. Keyes, will check another CT head tomorrow, monitor for worsening mental status Hypertensive emergency - patient is on lisinopril 10 mg daily, BP was in the 120's - he is off drips now - continue diltiazem 180 mg daily Right knee swelling/pain - noted to be warm and tender to palpation. Ortho has taken to OR to rule out septic arthritis - continue ceftriaxone Hyponatremia - sodium 133, will monitor Nutrition - speech has seen patient and advanced diet to chopped diet" 03/22: Mental status improving. Start chopped diet with thin liquids with swallowing precautions as recommended by speech therapy. Increase diltiazem to 240 mg orally daily and wean off diltiazem drip as tolerated. Goal of heart rate less than 110. Add clonidine 0.1 mg orally twice daily to lisinopril 10 mg orally daily today to achieve control blood pressure. Continue physical therapy and Occupational Therapy. 03/23: No new focal deficits. The patient is feeling better. Her blood pressure is now well controlled. Transfer to stroke unit.
[2020-03-23] MEDS: cefTRIAXone\\ROCEPHIN 2 GM in Sodium Chloride 0.9% 100 ML IVPB SCH (17:27)
[2020-03-23] MEDS: Acetaminophen 325 MG TAB PO PRN (20:43)
[2020-03-24] MEDS: Labetalol HCl 100 MG/20 ML VIAL SLOW IVP PRN (05:19)
[2020-03-24] MEDS: cloNIDine 0.1 MG TAB PO SCH ×2 (08:15→21:25)
[2020-03-24] MEDS: Famotidine/PF 20 mg/2ml Vial SLOW IVP SCH ×2 (08:16→21:25)
[2020-03-24] MEDS: Dronedarone HCl 400 MG TAB PO SCH ×2 (08:16→17:21)
[2020-03-24] MEDS: Lisinopril 10 MG TAB PO SCH (08:17)
[2020-03-24] MEDS ORDERED: predniSONE 20 MG TAB PO SCH (09:30)
[2020-03-24] MEDS ORDERED: Ketorolac Tromethamine 30 MG/ML VIAL IVP SCH (09:30)
[2020-03-24] MEDS ORDERED: Pantoprazole 40 MG VIAL IVP SCH (09:30)
[2020-03-24 10:42] VITALS: BMI 22.3
[2020-03-24] MEDS: Acetaminophen 325 MG TAB PO PRN (14:43)
--- NOTE | 2020-03-24 15:29 | PDOC.HOSPP ---
- Subjective Encounter Date: 03/24/20 - Objective Vital Signs & Weight: Vital Signs (12 hours) Temp Pulse Resp BP BP Pulse Ox 03/24/20 14:45 101.5 F H 03/24/20 11:50 99.6 F 85 18 114/63 94 L 03/24/20 08:16 109 H 03/24/20 07:51 98.3 F 112 H 16 138/83 96 03/24/20 06:02 96 147/93 H 03/24/20 05:19 107 H 169/96 H 03/24/20 04:33 98.6 F 114 H 18 176/94 H 96 Weight Admit Weight 195 lb Weight 193 lb Most Recent Monitor Data Heart Rate from ECG 82 NIBP 119/69 NIBP BP-Mean 85 Respiration from ECG 25 SpO2 95 I&O: 03/23/20 03/24/20 03/25/20 06:59 06:59 06:59 Intake Total 2947 1375 Output Total 1615 485 Balance 1332 890 Result Diagrams: 03/22/20 03:49 03/22/20 03:49 Hospitalist ROS - Medication Medications: Active Medications Generic Name Dose Route Start Last Admin Trade Name Freq PRN Reason Stop Dose Admin Acetaminophen 650 mg 03/19/20 12:56 03/24/20 14:43 Tylenol PO 650 mg Q6H PRN Administration Fever > 101 or Headache Clonidine 0.1 mg 03/22/20 21:00 03/24/20 08:15 Catapres PO 0.1 mg BID EVITA Administration Diltiazem HCl 240 mg 03/23/20 09:00 03/24/20 08:16 Cardizem Cd PO 240 mg DAILY EVITA Administration Dronedarone 400 mg 03/20/20 08:00 03/24/20 08:16 Multaq PO 400 mg BID-WM EVITA Administration Famotidine 20 mg 03/19/20 21:00 03/24/20 08:16 Pepcid SLOW IVP 20 mg Q12HR EVITA Administration Hydralazine HCl 5 mg 03/19/20 12:56 03/22/20 11:12 Apresoline SLOW IVP 5 mg Q15MIN PRN Administration sbp>140 Labetalol HCl 10 mg 03/19/20 12:56 03/24/20 05:19 Normodyne SLOW IVP 10 mg Q4H PRN Administration SBP > 140 Lisinopril 10 mg 03/20/20 09:00 03/24/20 08:17 Zestril PO 10 mg DAILY EVITA Administration Sodium Chloride 10 ml 03/19/20 12:56 03/24/20 08:16 Flush - Normal Saline IVF 10 ml PRN PRN Administration Saline Flush - Exam General Appearance: awake alert ENT: normocephalic atraumatic Neck: supple Heart: RRR Respiratory: CTAB, normal chest expansion, no tachypnea Gastrointestinal: soft Neurological: cranial nerve grossly intact Hosp A/P - Plan 03/21: "Acute encephalopathy secondary to intraventricular hemorrhage with hydrocephalus - repeat CT head is stable. Right leg was weaker today and patient has fluctuating mental status. Discussed with Dr. Keyes, will check another CT head tomorrow, monitor for worsening mental status Hypertensive emergency - patient is on lisinopril 10 mg daily, BP was in the 120's - he is off drips now - continue diltiazem 180 mg daily Right knee swelling/pain - noted to be warm and tender to palpation. Ortho has taken to OR to rule out septic arthritis - continue ceftriaxone Hyponatremia - sodium 133, will monitor Nutrition - speech has seen patient and advanced diet to chopped diet" 03/22: Mental status improving. Start chopped diet with thin liquids with swallowing precautions as recommended by speech therapy. Increase diltiazem to 240 mg orally daily and wean off diltiazem drip as tolerated. Goal of heart rate less than 110. Add clonidine 0.1 mg orally twice daily to lisinopril 10 mg orally daily today to achieve control blood pressure. Continue physical therapy and Occupational Therapy. 03/23: No new focal deficits. The patient is feeling better. Her blood pressure is now well controlled. Transfer to stroke unit. 03/24: The patient was transferred to the stroke unit. Continue PT and OT. His right knee aspiration fluid showed CPP crystals suggesting pseudogout. Prednisone has been initiated. Cultures of the knee aspirate and urine show no growth so far. The patient had a fever today. Checking blood cultures, C-reactive protein, ESR, and procalcitonin. Continue IV Rocephin.
[2020-03-25 05:20] LABS: #Lymphocytes 1.3 thou/uL (1.20-3.40); #Monocytes 1.2 thou/uL (0.11-0.59); %Basophils 0.1 % (0.0-1.0); %Eosinophils 0.3 % (0.0-10.0); %Lymphocytes 15.6 % (21.0-51.0); %Monocytes 13.8 % (0.0-10.0); %Neutrophils 70.3 % (42.0-75.0); Hemoglobin 12.8 g/dL (14.0-18.0); Mean Corpuscular HGB CONC 34.5 g/dL (32.0-36.0); Mean Corpuscular Hemoglobin 31.9 pg (27.0-31.0); Mean Corpuscular Volume 92.5 fL (78.0-98.0); Mean Platelet Volume 8.9 fL (7.4-10.4); Platelet Count 140 thou/uL (130-400); RBC Distribution Width 11.2 % (11.5-14.5); Red Blood Cell (RBC) Count 4.02 mill/uL (4.70-6.10); White Blood Cell (WBC) Count 8.6 thou/uL (4.8-10.8)
[2020-03-25 05:40] LABS: Anion Gap 12 mmol/L (10-20); BUN (Urea Nitrogen) 20 mg/dL (8.4-25.7); Calc. Creatinine Clearance 127 mL/min (70-130); Calcium 7.9 mg/dL (7.8-10.44); Carbon Dioxide 22 mmol/L (23-31); Chloride 99 mmol/L (98-107); Estimated GFR-MDRD Greater than 90; Glucose 108 mg/dL (80-115); Potassium 3.6 mmol/L (3.5-5.1); Sodium 129 mmol/L (136-145)
[2020-03-25] MEDS: Dronedarone HCl 400 MG TAB PO SCH ×2 (09:11→17:19)
[2020-03-25] MEDS: Famotidine/PF 20 mg/2ml Vial SLOW IVP SCH (09:11)
[2020-03-25] MEDS: cloNIDine 0.1 MG TAB PO SCH ×2 (09:12→22:14)
[2020-03-25] MEDS: Lisinopril 10 MG TAB PO SCH (09:13)
[2020-03-25] MEDS: predniSONE 20 MG TAB PO SCH (09:15)
[2020-03-25] MEDS: Acetaminophen 325 MG TAB PO PRN (09:23)
--- NOTE | 2020-03-25 14:27 | PDOC.HOSPP ---
- Subjective Encounter Date: 03/25/20 Subjective: Swelling of his right knee is improving. - Objective Vital Signs & Weight: Vital Signs (12 hours) Temp Pulse Resp BP BP Pulse Ox 03/25/20 11:13 97.8 F 97 20 122/81 93 L 03/25/20 09:13 139/90 03/25/20 09:12 133/75 03/25/20 09:11 104 H 03/25/20 07:43 98.2 F 96 20 133/75 96 03/25/20 04:00 98.1 F 95 16 133/87 98 Weight Admit Weight 195 lb Weight 195 lb 8 oz Most Recent Monitor Data Heart Rate from ECG 82 NIBP 119/69 NIBP BP-Mean 85 Respiration from ECG 25 SpO2 95 I&O: 03/24/20 03/25/20 03/26/20 06:59 06:59 06:59 Intake Total 1375 1115 540 Output Total 485 375 275 Balance 890 740 265 Result Diagrams: 03/25/20 04:48 03/25/20 04:48 Hospitalist ROS - Medication Medications: Active Medications Generic Name Dose Route Start Last Admin Trade Name Freq PRN Reason Stop Dose Admin Acetaminophen 650 mg 03/19/20 12:56 03/25/20 09:23 Tylenol PO 650 mg Q6H PRN Administration Fever > 101 or Headache Clonidine 0.1 mg 03/22/20 21:00 03/25/20 09:12 Catapres PO 0.1 mg BID EVITA Administration Diltiazem HCl 240 mg 03/23/20 09:00 03/25/20 09:11 Cardizem Cd PO 240 mg DAILY EVITA Administration Dronedarone 400 mg 03/20/20 08:00 03/25/20 09:11 Multaq PO 400 mg BID-WM EVITA Administration Famotidine 20 mg 03/19/20 21:00 03/25/20 09:11 Pepcid SLOW IVP 20 mg Q12HR EVITA Administration Hydralazine HCl 5 mg 03/19/20 12:56 03/22/20 11:12 Apresoline SLOW IVP 5 mg Q15MIN PRN Administration sbp>140 Labetalol HCl 10 mg 03/19/20 12:56 03/24/20 05:19 Normodyne SLOW IVP 10 mg Q4H PRN Administration SBP > 140 Lisinopril 10 mg 03/20/20 09:00 03/25/20 09:13 Zestril PO 10 mg DAILY EVITA Administration Pantoprazole Sodium 40 mg 03/25/20 09:00 03/25/20 09:14 Protonix PO 40 mg DAILY EVITA Administration Prednisone 40 mg 03/25/20 08:00 03/25/20 09:15 Prednisone PO 40 mg QAM-WM EVITA Administration Sodium Chloride 10 ml 03/19/20 12:56 03/25/20 09:11 Flush - Normal Saline IVF 10 ml PRN PRN Administration Saline Flush - Exam ENT: normocephalic atraumatic Neck: supple, no JVD Heart: RRR Respiratory: normal chest expansion, no tachypnea Extremities: no cyanosis, no clubbing Hosp A/P - Plan 03/21: "Acute encephalopathy secondary to intraventricular hemorrhage with hydrocephalus - repeat CT head is stable. Right leg was weaker today and patient has fluctuating mental status. Discussed with Dr. Keyes, will check another CT head tomorrow, monitor for worsening mental status Hypertensive emergency - patient is on lisinopril 10 mg daily, BP was in the 120's - he is off drips now - continue diltiazem 180 mg daily Right knee swelling/pain - noted to be warm and tender to palpation. Ortho has taken to OR to rule out septic arthritis - continue ceftriaxone Hyponatremia - sodium 133, will monitor Nutrition - speech has seen patient and advanced diet to chopped diet" 03/22: Mental status improving. Start chopped diet with thin liquids with swallowing precautions as recommended by speech therapy. Increase diltiazem to 240 mg orally daily and wean off diltiazem drip as tolerated. Goal of heart rate less than 110. Add clonidine 0.1 mg orally twice daily to lisinopril 10 mg orally daily today to achieve control blood pressure. Continue physical therapy and Occupational Therapy. 03/23: No new focal deficits. The patient is feeling better. Her blood pressure is now well controlled. Transfer to stroke unit. 03/24: The patient was transferred to the stroke unit. Continue PT and OT. His right knee aspiration fluid showed CPP crystals suggesting pseudogout. Prednisone has been initiated. Cultures of the knee aspirate and urine show no growth so far. The patient had a fever today. Checking blood cultures, C-reactive protein, ESR, and procalcitonin. Continue IV Rocephin. 03/25: Pseudogout is responding to anti-inflammatory medications started yesterday. Elevated ESR and C-reactive protein with low procalcitonin suggesting inflammatory process that is not infectious. Continue current management. Pending placement.
[2020-03-25] MEDS: cefTRIAXone\\ROCEPHIN 2 GM in Sodium Chloride 0.9% 100 ML IVPB SCH (17:18)
[2020-03-26] MEDS: predniSONE 20 MG TAB PO SCH (08:37)
[2020-03-26] MEDS: Lisinopril 10 MG TAB PO SCH (08:37)
[2020-03-26] MEDS: Dronedarone HCl 400 MG TAB PO SCH ×2 (08:37→18:26)
[2020-03-26] MEDS: cloNIDine 0.1 MG TAB PO SCH ×2 (08:37→20:09)
[2020-03-26] MEDS: Acetaminophen 325 MG TAB PO PRN ×2 (10:18→18:26)
--- NOTE | 2020-03-26 14:01 | PDOC.HOSPP ---
- Subjective Encounter Date: 03/26/20 Subjective: Patient has been intermittently confused and sleepy. He denies any new complaints today. His right knee swelling and tenderness has improved - Objective Vital Signs & Weight: Vital Signs (12 hours) Temp Pulse Resp BP BP Pulse Ox 03/26/20 11:50 97.9 F 99 20 113/75 92 L 03/26/20 08:37 134/88 03/26/20 08:35 96 03/26/20 07:50 97.6 F 92 18 165/90 H 97 Weight Admit Weight 195 lb Weight 203 lb 1.6 oz Most Recent Monitor Data Heart Rate from ECG 82 NIBP 119/69 NIBP BP-Mean 85 Respiration from ECG 25 SpO2 95 I&O: 03/25/20 03/26/20 03/27/20 06:59 06:59 06:59 Intake Total 1115 1800 240 Output Total 375 475 375 Balance 740 1325 -135 Result Diagrams: 03/25/20 04:48 03/25/20 04:48 Hospitalist ROS - Medication Medications: Active Medications Generic Name Dose Route Start Last Admin Trade Name Freq PRN Reason Stop Dose Admin Acetaminophen 650 mg 03/19/20 12:56 03/26/20 10:18 Tylenol PO 650 mg Q6H PRN Administration Fever > 101 or Headache Clonidine 0.1 mg 03/22/20 21:00 03/26/20 08:37 Catapres PO 0.1 mg BID EVITA Administration Diltiazem HCl 240 mg 03/23/20 09:00 03/26/20 08:35 Cardizem Cd PO 240 mg DAILY EVITA Administration Dronedarone 400 mg 03/20/20 08:00 03/26/20 08:37 Multaq PO 400 mg BID-WM EVITA Administration Hydralazine HCl 5 mg 03/19/20 12:56 03/22/20 11:12 Apresoline SLOW IVP 5 mg Q15MIN PRN Administration sbp>140 Ceftriaxone Sodium 2 gm/ 100 mls @ 200 mls/hr 03/25/20 17:00 03/25/20 17:18 Sodium Chloride IVPB 100 mls 1700 EVITA Administration Labetalol HCl 10 mg 03/19/20 12:56 03/24/20 05:19 Normodyne SLOW IVP 10 mg Q4H PRN Administration SBP > 140 Lisinopril 10 mg 03/20/20 09:00 03/26/20 08:37 Zestril PO 10 mg DAILY EVITA Administration Pantoprazole Sodium 40 mg 03/25/20 09:00 03/26/20 08:36 Protonix PO 40 mg DAILY EVITA Administration Prednisone 40 mg 03/25/20 08:00 03/26/20 08:37 Prednisone PO 40 mg QAM-WM EVITA Administration Sodium Chloride 10 ml 03/19/20 12:56 03/26/20 08:38 Flush - Normal Saline IVF 10 ml PRN PRN Administration Saline Flush - Exam General Appearance: awake alert ENT: normocephalic atraumatic Neck: supple Respiratory: normal chest expansion, no tachypnea Neurological: cranial nerve grossly intact Hosp A/P - Plan 03/21: "Acute encephalopathy secondary to intraventricular hemorrhage with hydrocephalus - repeat CT head is stable. Right leg was weaker today and patient has fluctuating mental status. Discussed with Dr. Keyes, will check another CT head tomorrow, monitor for worsening mental status Hypertensive emergency - patient is on lisinopril 10 mg daily, BP was in the 120's - he is off drips now - continue diltiazem 180 mg daily Right knee swelling/pain - noted to be warm and tender to palpation. Ortho has taken to OR to rule out septic arthritis - continue ceftriaxone Hyponatremia - sodium 133, will monitor Nutrition - speech has seen patient and advanced diet to chopped diet" 03/22: Mental status improving. Start chopped diet with thin liquids with swallowing precautions as recommended by speech therapy. Increase diltiazem to 240 mg orally daily and wean off diltiazem drip as tolerated. Goal of heart rate less than 110. Add clonidine 0.1 mg orally twice daily to lisinopril 10 mg orally daily today to achieve control blood pressure. Continue physical therapy and Occupational Therapy. 03/23: No new focal deficits. The patient is feeling better. Her blood pressure is now well controlled. Transfer to stroke unit. 03/24: The patient was transferred to the stroke unit. Continue PT and OT. His right knee aspiration fluid showed CPP crystals suggesting pseudogout. Prednisone has been initiated. Cultures of the knee aspirate and urine show no growth so far. The patient had a fever today. Checking blood cultures, C-reactive protein, ESR, and procalcitonin. Continue IV Rocephin. 03/25: Pseudogout is responding to anti-inflammatory medications started yesterday. Elevated ESR and C-reactive protein with low procalcitonin suggesting inflammatory process that is not infectious. Continue current management. Pending placement. 03/26: Right knee swelling and tenderness has improved. Continue prednisone. The patient is mental status has been deteriorating according to nursing staff. I will check a CT scan of the head. Awaiting placement.
--- NOTE | 2020-03-26 14:38 | CT ---
EXAM: CT brain without contrast HISTORY: Altered mental status and intracranial hemorrhage COMPARISON: 03/22/2020 TECHNIQUE: Multiple contiguous axial images were obtained and a CT of the brain without contrast. FINDINGS: There is a stable hemorrhage in the left basal ganglia. The amount of intraventricular hemo rrhage has decreased compared to the prior examination. No hydrocephalus is seen. There is slightly less prominent midline shift. The calvarium and overlying soft tissues are unremarkable. The visualized paranasal sinuses are well aerated. Fluid is seen in the right mastoid air cells. IMPRESSION: Decreasing intraventricular hemorrhage
[2020-03-26] MEDS: cefTRIAXone\\ROCEPHIN 2 GM in Sodium Chloride 0.9% 100 ML IVPB SCH (18:26)
[2020-03-27] MEDS: hydrALAZINE 20 MG/ML VIAL SLOW IVP PRN ×2 (04:49→12:17)
[2020-03-27] MEDS: predniSONE 20 MG TAB PO SCH (09:47)
[2020-03-27] MEDS: Lisinopril 10 MG TAB PO SCH (09:49)
[2020-03-27] MEDS: cloNIDine 0.1 MG TAB PO SCH (09:49)
[2020-03-27] MEDS: Dronedarone HCl 400 MG TAB PO SCH (09:50)
[2020-03-27 11:37] VITALS: TEMP 98
--- NOTE | 2020-03-27 17:35 | PDOC.BPN ---
- Brief Progress Note No antiplatelet therapy as the patient was admitted for Intracranial hemorrhage and not ischemic stroke.
[2020-03-27 18:04] VITALS: BP 132/82
--- NOTE | 2020-03-28 00:58 | DIS ---
DATE OF ADMISSION: 03/19/2020 DATE OF DISCHARGE: 03/27/2020 DISCHARGE DIAGNOSES: 1. Cerebrovascular accident due to intracerebral hemorrhage. 2. Hypertensive emergency. 3. Hyponatremia. 4. Pseudogout of the right knee. DISCHARGE MEDICATIONS: 1. Amlodipine 10 mg orally daily. 2. Clonidine 0.1 mg orally twice daily. 3. Diltiazem 240 mg orally daily. 4. Tamsulosin 0.4 mg orally nightly. 5. Prednisone 20 mg orally daily. 6. Tylenol 650 mg orally q.6 hours as needed for pain or headache. 7. Multaq 400 mg orally twice daily. 8. Lisinopril 10 mg orally daily. 9. Loratadine 10 mg orally daily as needed for allergies. HISTORY OF PRESENT ILLNESS AND HOSPITAL COURSE: The patient is a 69-year-old male with past medical history of hypertension, atrial fibrillation, who was transferred to our hospital from the consultation facility with acute onset confusion. CT scan revealed large right correction large intraventricular hemorrhage in the left 3rd and 4th ventricles with early signs of hydrocephalus. The patient was recently started on Eliquis for atrial fibrillation. This medication has been discontinued. The patient was admitted to the ICU. He was hypertensive initially and was placed on a nicardipine drip, which was titrated to achieve a goal systolic blood pressure of less than 140. Oral antihypertensive medications were introduced gradually and the nicardipine drip has been weaned off. Repeat CT scans of the head did not show any progressing in the intracerebral hemorrhage. His mental status continued to gradually improve. During his hospital stay, right knee swelling and tenderness was noted. Aspiration of the joint was performed, which did not show any bacterial growth, but revealed calcium pyrophosphate crystals suggesting pseudogout. The patient was managed with oral prednisone, which led to improvement in his knee swelling and tenderness. Recommend continue prednisone for 7 more days. At this time, the patient has reached a maximum benefit of hospitalization and will be discharged to the rehab facility. Job ID: [id number]
== END 2020-03-27 16:20 | DRG 65 ==
LOC: CCU 10:06 → 2SE 03-23 16:26
PROVIDERS: ADMIT Neurological Surgery; ATTEND Neurological Surgery
PROC: 0S9C3ZZ Drainage of Right Knee Joint, Percutaneous Approach (ICD-10-PCS; principal; 2020-03-21)
DX: I61.5 Nontraumatic intracerebral hemorrhage, intraventricular (principal); G91.1 Obstructive hydrocephalus; R47.01 Aphasia; E87.1 Hypo-osmolality and hyponatremia; I48.3 Typical atrial flutter; G93.49 Other encephalopathy; I16.1 Hypertensive emergency; I44.1 Atrioventricular block, second degree; I48.0 Paroxysmal atrial fibrillation; I10 Essential (primary) hypertension; D72.829 Elevated white blood cell count, unspecified; M11.261 Other chondrocalcinosis, right knee; F17.210 Nicotine dependence, cigarettes, uncomplicated; Z79.899 Other long term (current) drug therapy; Z79.01 Long term (current) use of anticoagulants
CPT/HCPCS: 36415; 70450; 80048; 81001; 82945; 84145; 84157; 84560; 85025; 85027; 85060; 85652; 86140; 87040; 87070; 87086; 87205; 89051; 89060; 93005; 93010; C9113; J0360; J0696; J1885; J2001; J3490; J7050; J7512; S0028

== ENCOUNTER 2020-06-14 09:30 | Inpatient (IN) | payer OTHER, MEDICARE ==
[2020-06-14 10:07] LABS: #Eosinphils 0.2 thou/uL (0.0-0.7); #Lymphocytes 1.6 thou/uL (1.20-3.40); #Monocytes 0.7 thou/uL (0.11-0.59); #Neutrophils 4.4 thou/uL (1.40-6.50); %Basophils 0.6 % (0.0-1.0); %Eosinophils 2.9 % (0.0-10.0); %Lymphocytes 22.5 % (21.0-51.0); %Monocytes 9.9 % (0.0-10.0); %Neutrophils 64.1 % (42.0-75.0); Hemoglobin 15.2 g/dL (14.0-18.0); Mean Corpuscular HGB CONC 33.1 g/dL (32.0-36.0); Mean Corpuscular Hemoglobin 30.6 pg (27.0-31.0); Mean Corpuscular Volume 92.6 fL (78.0-98.0); Mean Platelet Volume 9.7 fL (7.4-10.4); Platelet Count 154 thou/uL (130-400); RBC Distribution Width 12.7 % (11.5-14.5); Red Blood Cell (RBC) Count 4.95 mill/uL (4.70-6.10); White Blood Cell (WBC) Count 6.9 thou/uL (4.8-10.8)
[2020-06-14 10:12] LABS: INR-International Normal Ratio 0.9; PTT 27.9 sec (22.9-36.1); Prothrombin Time 12.7 sec (12.0-14.7)
[2020-06-14 10:27] LABS: ALT (SGPT) 15 U/L (8-55); AST (SGOT) 16 U/L (5-34); Albumin 4.2 g/dL (3.4-4.8); Alkaline Phosphatase 87 U/L (40-110); Anion Gap 13 mmol/L (10-20); BUN (Urea Nitrogen) 18 mg/dL (8.4-25.7); Bilirubin, Total 0.5 mg/dL (0.2-1.2); Calc. Creatinine Clearance 0 mL/min (70-130); Calcium 9.5 mg/dL (7.8-10.44); Carbon Dioxide 24 mmol/L (23-31); Chloride 104 mmol/L (98-107); Estimated GFR-MDRD 83; Glucose 87 mg/dL (80-115); Potassium 4.3 mmol/L (3.5-5.1); Protein, Total 7.2 g/dL (5.8-8.1); Sodium 137 mmol/L (136-145)
[2020-06-14] MEDS ORDERED: Promethazine 25 MG TAB PO PRN (12:25)
[2020-06-14] MEDS ORDERED: diphenhydrAMINE 50 MG/ML VIAL IVP PRN (12:25)
[2020-06-14] MEDS ORDERED: Mag-Al 1200 mg/1200 mg/30 ML UDCUP PO PRN (12:25)
[2020-06-14] MEDS ORDERED: diphenhydrAMINE 50 MG CAP PO PRN (12:25)
[2020-06-14] MEDS ORDERED: Labetalol HCl 100 MG/20 ML VIAL SLOW IVP PRN (12:25)
[2020-06-14] MEDS ORDERED: hydrALAZINE 20 MG/ML VIAL SLOW IVP PRN (12:25)
[2020-06-14] MEDS ORDERED: Docusate 100 MG CAP PO PRN (12:25)
[2020-06-14] MEDS ORDERED: Acetaminophen 325 MG TAB PO PRN (12:36)
[2020-06-14] MEDS ORDERED: Iopamidol-370 76% 500 ML 1 ML ONE (13:44)
--- NOTE | 2020-06-14 14:17 | CT ---
CT OF BRAIN PERFORMED WITHOUT CONTRAST ENHANCEMENT: 06/14/20 HISTORY: Slurred speech, right sided facial droop. COMPARISON: 04/25/20, 03/26/20, 03/22/20 exams. There is bilateral frontal/parietal convexity subarachnoid blood more prominent on the right. I do no t see any decreased attenuation associated with this. The patient has had previous hemorrhages. I wou ld suspect he is on blood thinners. There is no subdural blood. There is no history of trauma. No mas s effect. Generalized atrophy noted. There is opacification of the right mastoid air cells which are also somewhat poorly aerated. This is a stable finding in this patient. The left mastoid air cells and visualized sinuses are clear. IMPRESSION: 1. Bilateral posterior frontal/parietal convexity subarachnoid hemorrhage. I would suspect that this is on the basis of the patient being on blood thinners. Some persistent decreased attenuation of the deep left basal ganglia region less prominent than the previous 04/25/20 study. 2. Findings were telephoned to Dr. Lee at 10:05 hours. POS: OFF
--- NOTE | 2020-06-14 15:41 | CON ---
NEUROLOGY CONSULTATION DATE OF CONSULTATION: 06/14/2020 REASON FOR CONSULTATION: Right facial droop/slurred speech. HISTORY OF PRESENT ILLNESS: A 70-year-old male with history significant for atrial fibrillation, atrial flutter, coronary artery disease, hypertension, presented with an episode of right facial droop and slurred speech, which resolved within less than an hour. The episode was witnessed by the . According to the , they woke up in the morning and had a cup of coffee, and afterwards around 9:30, he spoke to him and his speech does not make sense. He has unintelligible speech. He is staring off in space with right facial droop. She called the EMS. By the time ambulance came, his symptoms were resolved. He was brought to the emergency room for further evaluation since he has hemorrhagic stroke a couple of months ago and was found to have bilateral subdural hematoma. Neurology was consulted for further evaluation. The patient denies focal weakness, focal paresthesias, nausea, vomiting, headache, chest pain, abdominal pain, recent illness or recent exposure to COVID. PAST MEDICAL HISTORY: Atrial fibrillation, hypertension, hemorrhagic stroke. PAST SURGICAL HISTORY: Cataract surgery, shoulder surgery. SOCIAL HISTORY: . Lives with his . Drinks socially. Smokes cigarettes daily, 30-year history of smoking, half a pack a day. ALLERGIES: NO KNOWN DRUG ALLERGIES. HOME MEDICATIONS: 1. Diltiazem. 2. Multaq. 3. Eliquis.- ON HOLD SINCE LAST BLEED REVIEW OF SYSTEMS: All 14 systems were reviewed and were negative except the pertinent positives and negatives mentioned in the HPI. PHYSICAL EXAMINATION: VITAL SIGNS: Blood pressure 150/86, pulse 86, respiratory rate 18. CVS: Regular rate and rhythm. CHEST: Clear. ABDOMEN: Soft. NECK: Supple. NEUROLOGIC: Mental status; the patient is alert and oriented to person, place, and time. He is hard of hearing, but follows commands appropriately. Speech is clear. Cranial nerves 2 through 12 intact. Motor; muscle tone and bulk are normal. Moving all 4 extremities equally and symmetrically. Sensory withdraws to nailbed pressure bilaterally. Cerebellar, intact. Gait, deferred due to the patient's safety reasons. DIAGNOSTIC STUDIES: Data reviewed. I reviewed the head CT, which was consistent with bilateral posterior frontoparietal convexity subarachnoid hemorrhage. CTA was essentially unremarkable. ASSESSMENT AND PLAN: Mr. Joshua Aguilera is a 70-year-old male, who presented with an episode of right facial droop and slurred speech, which resolved on its own. Head CT consistent with bilateral subdural hematoma. Consider brain MRI to assess for acute intracranial process. Continue neuro checks every 2 hours. Neurosurgery is on board. Strict blood pressure control at this time. Continue home medications. Avoid antiplatelets and anticoagulants at this time because of the recent bleed. Continue other home medications. PT/OT/speech when stable. Telemetry. Continue medical management per primary team and Neurosurgery. Consider EEG to rule out underlying cortical irritability. Consider starting Keppra 500 mg p.o. b.i.d. for seizure prophylaxis. We will continue to follow. Thank you for the consult. Job ID: [id number] MTDD
--- NOTE | 2020-06-14 16:46 | CT ---
CT ANGIO OF HEAD PERFORMED WITH INTRAVENOUS CONTRAST ENHANCEMENT AND 3D RECONSTRUCTIONS: 06/14/20 HISTORY: Right sided facial droop, slurred speech. COMPARISON: Noncontrast CT of the brain done earlier today which showed subarachnoid blood over the convexities. The vertebral arteries are codominant and give equal contribution to the basilar artery. The right po sterior cerebral branch gets its main contribution from a origin of the posterior communicator. There is a patent left posterior communicating artery and a normal left posterior cerebral artery. There is some atherosclerotic disease in the cavernous portions of both internal carotid arteries. An terior and middle cerebral arteries and their branches appear unremarkable. No aneurysms are demonstr ated. No evidence of any vascular occlusion. Subarachnoid blood is again demonstrated. IMPRESSION: 1. Bifrontal subarachnoid blood over the convexities. 2. Unremarkable CT angio of head. POS: OFF
--- NOTE | 2020-06-14 16:57 | MRI ---
MRI OF BRAIN PERFORMED WITH AND WITHOUT INTRAVENOUS CONTRAST ENHANCEMENT: 06/14/20 HISTORY: Right sided facial droop and slurred speech. COMPARISON: CT angio of the head and CT brain done earlier today. There is generalized ventricular and sulcal prominence. Chronic white matter changes are noted with s ome areas of T2 and FLAIR hyperintensity. On the diffusion weighted sequence, I see no evidence for any acute infarct. The gradient sequence do es show subarachnoid blood over both convexities. Also old blood seen in the deep left basal ganglia region where patient had another area of old hemorrhage. Postcontrast images showed no abnormal enhancement. No extra-axial masses. IMPRESSION: 1. No evidence for acute infarct. 2. Subarachnoid blood mainly over the bilateral frontoparietal convexity region as well as old b lood deep to the left caudate nucleus region related to an area of old hemorrhage. POS: OFF
--- NOTE | 2020-06-14 17:15 | PRG ---
DATE OF SERVICE: 06/14/2020 I personally interviewed and examined the patient, agreed with documentation of Artur Spaulding PA-C dated 06/14/2020. Briefly, Joshua Aguilera is a patient from our Neurosurgery Service, known to Dr. Keyes previously for spontaneous intraventricular hemorrhage in February. He made a reasonable recovery from that and was followed with followup scans through their clinic. He was never put back on any blood thinner. He has been off Eliquis. He has not even taken aspirin. With that history, he had a brief episode of dysphasia this morning and again in the emergency department. These seem to have resolved. CT imaging revealed blood in the central sulcus on both sides in the subarachnoid space. MR image was done. The MR image does not reveal any area of ischemia, but it does suggest that the blood is not acute given the peel inflammation around it. Mr. Aguilera does not remember any head trauma or any episodes of very high blood pressure at home or any acute onset headache at home. In the absence of a blood thinner, it is hard to explain why the hemorrhage happened. He has now had subarachnoid hemorrhage twice, both of which were spontaneous and unrelated to trauma. There is a possibility that he had head trauma and forgot it and that this is a sequela from the cortical irritation of resolving blood products. Rare entities that could cause a picture similar to this, diffuse mycotic aneurysms from endocarditis causing hemorrhages over time. Vasculitis is a possibility. Venous hypertension in the intracranial space is a possibility. The venous hypertension could be the result of shunting or an occlusion/stenosis of one of the veins. The CT angiogram shows a small irregularity in the vein of Garry, but it is hard to imagine that would cause this picture. Dr. Keyes returns Tuesday. We may consider doing a diagnostic angiogram to look at the inflow and outflow in the cranial vessels and to look for vasculitis, mycotic aneurysm, or malformation. Until then, I would control blood pressure and do serial neurological examinations. Keppra could be considered because of its hopefulness and preventing cerebral cortical irritation from blood products. (15 minutes). Job ID: [id number] MTDD
[2020-06-14] MEDS: Sodium Chloride 0.9% 1,000 ML IV SCH (18:12)
--- NOTE | 2020-06-14 18:37 | CON ---
DATE OF CONSULTATION: CHIEF COMPLAINT: Left-sided numbness and facial droop. HISTORY OF PRESENT ILLNESS: The patient is a 70-year-old male with past medical history of atrial fibrillation, diagnosed in late February and was placed on Eliquis for anticoagulation. The patient subsequently developed hemorrhagic stroke in March and was taken off the anticoagulation. He is still suffering from residual expressive aphasia from his stroke. He presented to the hospital. He was brought to the hospital today by EMS after experiencing transient left-sided facial droop and left upper extremity numbness that lasted about 15 minutes prior to presentation. At this time, the patient's symptoms have completely resolved except for his underlying chronic expressive aphasia. CT scan of the brain revealed bilateral posterior frontal/parietal subarachnoid hemorrhage. The patient was admitted to the Neurosurgery Service and we were consulted for medical management. At this time, the patient does not have any new complaints and he has regained the sensation in his left upper extremity and his facial droop was resolved. REVIEW OF SYSTEMS: Negative except as noted in HPI. PAST MEDICAL HISTORY: Includes hypertension, atrial fibrillation, and hemorrhagic CVA. PAST SURGICAL HISTORY: Elbow, shoulder, knee, and cataract surgery. SOCIAL HISTORY: The patient drinks alcohol daily. Denies drug use and smokes cigarettes daily. FAMILY HISTORY: Noncontributory for his current presentation. PHYSICAL EXAMINATION: GENERAL: The patient is alert and oriented x3. HEENT: Head is normocephalic and atraumatic. Extraocular muscles are intact. NECK: Supple. CHEST: Clear to auscultation bilaterally. CARDIOVASCULAR: Revealed normal S1 and S2. ABDOMEN: Soft, nontender, and nondistended. NEUROLOGIC: Revealed expressive aphasia, but no other focal deficits. ASSESSMENT: 1. Bilateral subarachnoid hemorrhage. 2. History of atrial fibrillation, not currently on anticoagulation. 3. History of hypertension. PLAN: The patient will be admitted to stroke unit. Neuro checks q.4 hours. Continue Multaq, diltiazem, and lisinopril. The patient had a recent echocardiogram, so this test will not be repeated. CT angiogram of the head and neck was done, which did not show any acute abnormalities. MRI of the brain is pending. Avoid pharmacological DVT prophylaxis due to the intracranial bleed. We will maintain his blood pressure less than 160 systolic with p.r.n. medications. Further recommendations depend on the clinical course. Job ID: [id number]
[2020-06-14] MEDS: levETIRAcetam 500 MG TAB PO SCH (20:32)
--- NOTE | 2020-06-14 21:15 | CON ---
DATE OF CONSULTATION: 06/14/2020 CHIEF COMPLAINT: Left-sided weakness and slurred speech. HISTORY OF PRESENT ILLNESS: Mr. Aguilera is a 70-year-old gentleman with a past history of atrial fibrillation and hypertension. Previously, he was on Eliquis for his atrial fibrillation and has been off since the early part of March of this year. He presents today at [facility] [place] ED with left-sided weakness and slurred speech. When I saw him, his left-sided weakness has gone and his slurred speech is much improved. He was seen on March 19 of this year due to a sudden onset of confusion and a CT of the head showing a large intraventricular hemorrhage near the left lateral ventricle. The patient states he is on no blood thinners at this time. There was no confusion of whether it was left or right-sided weakness, facial droop has resolved. Neurosurgery was consulted due to bilateral subarachnoid hemorrhage noted on head CT. When asked the patient if he had a sudden headache or any loss of consciousness, he said no. He also denies any falls. REVIEW OF SYSTEMS: CONSTITUTION: Denies fever, chills, or headache. ENT: Denies change in vision or hearing. CARDIAC: Denies chest pain, shortness of breath, or diaphoresis. PULMONARY: Denies shortness of breath, hemoptysis, or cough. GI: Denies abdominal pain, nausea, vomiting, diarrhea, or change in stool formation and consistency. : Denies trouble with urination, frequency of urination, or bloody urine. SKIN: Denies skin rash, bruising, bleeding, or skin masses. MUSCULOSKELETAL: As per history of present illness. NEUROLOGIC: As per history of present illness. PSYCHOLOGIC: Denies anxiety, depression, or behavior changes. PAST MEDICAL HISTORY: Atrial fibrillation and hypertension. PAST SURGICAL HISTORY: Unspecified elbow shoulder and cataract. SOCIAL HISTORY: Currently smokes cigarettes daily for the past 30 years, half a pack a day. Drinks alcohol socially. Denies any illicit drugs. MEDICATIONS: 1. Acetaminophen. 2. Diltiazem. 3. Dronedarone. 4. Lisinopril. 5. Loratadine. ALLERGIES: NO KNOWN DRUG ALLERGIES. PHYSICAL EXAMINATION: VITAL SIGNS: BP is 154/88, pulse is 62, respiratory rate is 18, and temperature is 97.8. HEENT: Pupils are equal. Extraocular movements are intact. NECK: Soft and supple. No masses are noted. Range of motion is intact and nonpainful. NEUROLOGIC: Awake, alert, and oriented x3. Memory, attention, and fund of knowledge normal. Cranial nerves are grossly intact. Upper extremity strength, he has 5/5 bilateral strength in his deltoids, biceps, triceps, wrist extension, and finger intrinsics. Sensation is equal bilaterally. Reflexes symmetric. Lower extremities, 5/5 bilateral strength in his iliopsoas, quadriceps, hamstrings, anterior tib, EHL, and gastrocnemius. There is no area of dermatomal sensory loss. The reflexes are symmetric. The toes are downgoing. GCS 15. IMAGING: Head CT shows bilateral subarachnoid hemorrhage, which could be old. ASSESSMENT: Subarachnoid hemorrhage and left-sided weakness with slurred speech. PLAN: We will get a CTA of the brain and later today an MRI of the brain. Supportive care. No intracranial surgery at this time. Possible angiography on Tuesday, June 16. We will have him follow up in 2 to 3 weeks in our clinic and repeat any necessary scans prior to the visit. Job ID: [id number] [facility]
[2020-06-15] MEDS: Sodium Chloride 0.9% 1,000 ML IV SCH ×2 (06:30→17:30)
--- NOTE | 2020-06-15 07:30 | CON ---
DATE OF CONSULTATION: 06/14/2020 CHIEF COMPLAINT: Left-sided weakness and slurred speech. HISTORY OF PRESENT ILLNESS: Mr. Aguilera is a 70-year-old gentleman with a past history of atrial fibrillation and hypertension. Previously, he was on Eliquis for his atrial fibrillation and has been off since the early part of March of this year. He presents today at [facility] ED with left-sided weakness and slurred speech. When I saw him, his left-sided weakness has gone and his slurred speech is much improved. He was seen on March 19 of this year due to a sudden onset of confusion and a CT of the head showing a large intraventricular hemorrhage near the left lateral ventricle. The patient states he is on no blood thinners at this time. There was no confusion of whether it was left or right-sided weakness, facial droop has resolved. Neurosurgery was consulted due to bilateral subarachnoid hemorrhage noted on head CT. When asked the patient if he had a sudden headache or any loss of consciousness, he said no. He also denies any falls. REVIEW OF SYSTEMS: CONSTITUTION: Denies fever, chills, or headache. ENT: Denies change in vision or hearing. CARDIAC: Denies chest pain, shortness of breath, or diaphoresis. PULMONARY: Denies shortness of breath, hemoptysis, or cough. GI: Denies abdominal pain, nausea, vomiting, diarrhea, or change in stool formation and consistency. : Denies trouble with urination, frequency of urination, or bloody urine. SKIN: Denies skin rash, bruising, bleeding, or skin masses. MUSCULOSKELETAL: As per history of present illness. NEUROLOGIC: As per history of present illness. PSYCHOLOGIC: Denies anxiety, depression, or behavior changes. PAST MEDICAL HISTORY: Atrial fibrillation and hypertension. PAST SURGICAL HISTORY: Unspecified elbow shoulder and cataract. SOCIAL HISTORY: Currently smokes cigarettes daily for the past 30 years, half a pack a day. Drinks alcohol socially. Denies any illicit drugs. MEDICATIONS: 1. Acetaminophen. 2. Diltiazem. 3. Dronedarone. 4. Lisinopril. 5. Loratadine. ALLERGIES: NO KNOWN DRUG ALLERGIES. PHYSICAL EXAMINATION: VITAL SIGNS: BP is 154/88, pulse is 62, respiratory rate is 18, and temperature is 97.8. HEENT: Pupils are equal. Extraocular movements are intact. NECK: Soft and supple. No masses are noted. Range of motion is intact and nonpainful. NEUROLOGIC: Awake, alert, and oriented x3. Memory, attention, and fund of knowledge normal. Cranial nerves are grossly intact. Upper extremity strength, he has 5/5 bilateral strength in his deltoids, biceps, triceps, wrist extension, and finger intrinsics. Sensation is equal bilaterally. Reflexes symmetric. Lower extremities, 5/5 bilateral strength in his iliopsoas, quadriceps, hamstrings, anterior tib, EHL, and gastrocnemius. There is no area of dermatomal sensory loss. The reflexes are symmetric. The toes are downgoing. GCS 15. IMAGING: Head CT shows bilateral subarachnoid hemorrhage, which could be old. ASSESSMENT: Subarachnoid hemorrhage and left-sided weakness with slurred speech. PLAN: We will get a CTA of the brain and later today, an MRI of the brain. Supportive care. No intracranial surgery at this time. We will have him follow up in 2 to 3 weeks in our clinic and repeat the scans prior to this visit. Job ID: [id number] MTDD
[2020-06-15 07:44] LABS: #Eosinphils 0.2 thou/uL (0.0-0.7); #Lymphocytes 1.4 thou/uL (1.20-3.40); #Monocytes 0.6 thou/uL (0.11-0.59); #Neutrophils 4.1 thou/uL (1.40-6.50); %Basophils 0.6 % (0.0-1.0); %Lymphocytes 21.6 % (21.0-51.0); %Monocytes 9.3 % (0.0-10.0); %Neutrophils 65.5 % (42.0-75.0); Mean Corpuscular HGB CONC 33.6 g/dL (32.0-36.0); Mean Corpuscular Hemoglobin 31.1 pg (27.0-31.0); Mean Corpuscular Volume 92.6 fL (78.0-98.0); Mean Platelet Volume 8.2 fL (7.4-10.4); Platelet Count 180 thou/uL (130-400); RBC Distribution Width 12.6 % (11.5-14.5); Red Blood Cell (RBC) Count 4.51 mill/uL (4.70-6.10); White Blood Cell (WBC) Count 6.3 thou/uL (4.8-10.8)
[2020-06-15 08:12] LABS: Anion Gap 14 mmol/L (10-20); BUN (Urea Nitrogen) 15 mg/dL (8.4-25.7); Calc. Creatinine Clearance 114 mL/min (70-130); Calcium 8.5 mg/dL (7.8-10.44); Carbon Dioxide 21 mmol/L (23-31); Chloride 106 mmol/L (98-107); Estimated GFR-MDRD Greater than 90; Glucose 82 mg/dL (80-115); Potassium 4.2 mmol/L (3.5-5.1); Sodium 137 mmol/L (136-145)
[2020-06-15] MEDS ORDERED: FLU VACC QS2020-21(65YR UP)/PF 240 MCG/0.7 ML SYRINGE IM ONE (09:00)
--- NOTE | 2020-06-15 10:31 | PRG ---
DATE OF SERVICE: 06/15/2020 Mr. Aguilera is in his hospital room this morning. He was admitted yesterday with spontaneous subarachnoid hemorrhage in the central sulcus on both sides. CT angiography was unrevealing. This is his second subarachnoid hemorrhage this year. Overnight, he noticed some tingling and numbness in the left forearm and hand that resolved. It was temporary. Do not show fever. Blood pressures have been stable. The neurological examination has improved today with more fluent speech. He is moving both sides well. He does not have any neglect or sensory deficits. Mr. Aguilera look forward to discussing his case with Dr. Keyes who could do a diagnostic angiogram. This could be done tomorrow or early in the week (15 minutes). Job ID: [id number] MTDD
--- NOTE | 2020-06-15 10:32 | PDOC.HOSPP ---
- Subjective Encounter Date: 06/15/20 Encounter Time: 10:30 Subjective: Pt reports he feels well. Denies any weakness. Able to tell me his name, birthday and the date, although with some expressive aphasia which is his baseline. No overnight events. Pt examined at bedside. Chart and medications reviewed. - Objective Vital Signs & Weight: Vital Signs (12 hours) Temp Pulse Resp BP Pulse Ox 06/15/20 08:00 97.8 F 53 L 18 136/67 94 L 06/15/20 04:00 97.3 F L 65 19 129/71 96 Weight Weight 209 lb 3.2 oz I&O: 06/14/20 06/15/20 06/16/20 06:59 06:59 06:59 Intake Total 300 Balance 300 Result Diagrams: 06/15/20 07:36 06/15/20 07:36 Hospitalist ROS - Review of Systems Constitutional: denies: fever, chills Eyes: denies: vision change Respiratory: denies: cough, shortness of breath Cardiovascular: denies: chest pain, palpitations, orthopnea Gastrointestinal: denies: nausea, vomiting, abdominal pain, diarrhea Genitourinary: denies: dysuria Neurological: denies: weakness, numbness - Medication Medications: Active Medications Generic Name Dose Route Start Last Admin Trade Name Freq PRN Reason Stop Dose Admin Sodium Chloride 1,000 mls @ 75 mls/hr 06/14/20 12:30 06/15/20 06:30 Normal Saline 0.9% IV 1,000 mls .[id number] EVITA Administration Levetiracetam 500 mg 06/14/20 21:00 06/14/20 20:32 Levetiracetam 500 Mg Tab PO 500 mg BID EVITA Administration - Exam General Appearance: NAD, awake alert Eye: PERRL, anicteric sclera ENT: normocephalic atraumatic, no oropharyngeal lesions, moist mucosa Neck: supple, symmetric, no JVD, no thyromegaly, no lymphadenopathy, no carotid bruit Heart: RRR, no murmur, no gallops, no rubs, normal peripheral pulses Respiratory: CTAB, no wheezes, no rales, no ronchi, normal chest expansion, no tachypnea, normal percussion Gastrointestinal: soft, non-tender, non-distended, normal bowel sounds, no palpable masses, no hepatomegaly, no splenomegaly, no bruit Extremities: no cyanosis, no clubbing, no edema Skin: normal turgor, no lesions, no rashes Neurological: cranial nerve grossly intact, normal sensation to touch Neurological - other findings: expressive aphasia Musculoskeletal: normal tone, normal strength, no muscle wasting Psychiatric: normal affect, normal behavior, A&O x 3 Hosp A/P (1) Atrial fibrillation Code(s): I48.91 - UNSPECIFIED ATRIAL FIBRILLATION Status: Acute (2) Coronary artery disease Code(s): I25.10 - ATHSCL HEART DISEASE OF [place] CORONARY ARTERY W/O ANG PCTRS Status: Acute (3) Hemorrhagic stroke Code(s): I61.9 - NONTRAUMATIC INTRACEREBRAL HEMORRHAGE, UNSPECIFIED Status: Acute (4) Subarachnoid hemorrhage Code(s): I60.9 - NONTRAUMATIC SUBARACHNOID HEMORRHAGE, UNSPECIFIED Status: Acute (5) Hypertension Code(s): I10 - ESSENTIAL (PRIMARY) HYPERTENSION Status: Acute - Plan Subarachnoid Hemorrhage: 70M hx of a-fib, CAD, HTN, and hemorrhagic stroke a few months ago p/w acute onset of insensible speech and R facial droop. Symptoms resolved within a few hours of onset. CT brain showed bilateral subarachnoid hemorrhage. Brain MRI showed subarachnoid blood over bilateral fronterparietal lobes and old blood deep to the L caudate nucleus. Neurogsurgery following who did not recommend surgical intervention at this time. Pt started on prophylactic Keppra. EEG pending. Pt with prior hemorrhagic stroke a few months ago with residual expressive aphasia. Was discontinued of all anti-platelet and anticoagulation at that time. On exam, pt at baseline neuro status with expressive aphasia. Will maintain blood pressure control with SPB<160. PLAN: -BP control with prn hydralazine and labetalol to maintain SBP <160 -EEG pending -Continue Keppra 500 mg BID -Q4 neuro checks -Outpatient f/u with neurosurgery in 2-3 weeks with repeat scans Atrial Fibrillation: Hx of a-fib, was on Eliquis at time of prior hemorrhagic stroke which has since been discontinued. Pt controlled now on diltiazem and multaq. Will continue these. Hypertension: Hx of HTN on lisinopril 10 mg. Will continue with holding parameters. CAD: Hx CAD. ASA contraindicated due to recurrent brain bleeds. DVT Prophylaxis: SCDs, NO AC Case discussed with attending physician, Dr. Connelly. ADDENDUM: Hydralazine IV is currently on back-order, will use IV nimodipine as alternative
[2020-06-15] MEDS: levETIRAcetam 500 MG TAB PO SCH ×2 (10:43→20:41)
[2020-06-15] MEDS ORDERED: niMODipine 30 MG CAP PO SCH (12:15)
[2020-06-15 13:22] LABS: SARS-CoV-2 MS2 Positive; SARS-CoV-2 N Gene Negative; SARS-CoV-2 S Gene Negative; SARS-CoV-2 by NAA Not Detected (NotDetected); SARS-CoV-2 orf1ab Negative
--- NOTE | 2020-06-15 15:29 | PDOC.NEUPN ---
- Subjective Encounter Date: 06/15/20 Subjective: Patient feels better today. EEG negative for seizure activity. - Objective Vital Signs & Weight: Vital Signs (12 hours) Temp Pulse Pulse Pulse Resp BP BP 06/15/20 12:35 58 L 73 138/71 137/66 06/15/20 11:30 97.8 F 53 L 14 06/15/20 08:00 97.8 F 53 L 18 06/15/20 04:00 97.3 F L 65 19 BP Pulse Ox 06/15/20 12:35 06/15/20 11:30 150/79 H 96 06/15/20 08:00 136/67 94 L 06/15/20 04:00 129/71 96 Weight Weight 209 lb 3.2 oz I&O: 06/14/20 06/15/20 06/16/20 06:59 06:59 06:59 Intake Total 300 480 Balance 300 480 Result Diagrams: 06/15/20 07:36 06/15/20 07:36 Radiology Reviewed by me: Yes EKG Reviewed by me: Yes ROS - Review of Systems Constitutional: denies: fever, chills, sweats, weakness, malaise, other Eyes: denies: pain, vision change, conjunctivae inflammation, eyelid inflammation, redness, other ENT: denies: ear pain, ear discharge, nose pain, nose discharge, nose congestion, mouth pain, mouth swelling, throat pain, throat swelling, other Respiratory: denies: cough, dry, shortness of breath, hemoptysis, SOB with excertion, pleuritic pain, sputum, wheezing, other Cardiovascular: denies: no pertinent history, AFIB, CAD, CHF, HTN, TN, Syncope, Hyperlipidemia, Mitral valve stenosis, Aortic stenosis, Valve insufficiency, Pulmonary hypertension, Other Gastrointestinal: denies: nausea, vomiting, abdominal pain, diarrhea, constipation, melena, hematochezia, other Genitourinary: denies: dysuria, frequency, incontinence, hematuria, retention, other Musculoskeletal: denies: neck pain, shoulder pain, arm pain, back pain, hand pain, leg pain, foot pain, other Skin: denies: rash, lesions, hannah, bruising, other Neurological: reports: change in speech - Medication Medications: Active Medications Generic Name Dose Route Start Last Admin Trade Name Freq PRN Reason Stop Dose Admin Sodium Chloride 1,000 mls @ 75 mls/hr 06/14/20 12:30 06/15/20 06:30 Normal Saline 0.9% IV 1,000 mls .[id number] EVITA Administration Levetiracetam 500 mg 06/14/20 21:00 06/15/20 10:43 Levetiracetam 500 Mg Tab PO 500 mg BID EVITA Administration Pantoprazole Sodium 40 mg 06/15/20 09:00 06/15/20 10:43 Pantoprazole 40 Mg Tab PO 40 mg DAILY EVITA Administration - Exam General Appearance: awake alert Eye: PERRL Neck: supple Respiratory: CTAB Cardiovascular: RRR Gastrointestinal: soft Extremities: no cyanosis Neurological: no new deficit Musculoskeletal: no muscle wasting PSYCH: normal affect, normal behavior, A&O x 3 Results - Labs Result Diagrams: 06/15/20 07:36 06/15/20 07:36 Lab results: WBC 6.3 thou/uL (4.8-10.8) 06/15/20 07:36 Hgb 14.0 g/dL (14.0-18.0) 06/15/20 07:36 Hct 41.8 % (42.0-52.0) L 06/15/20 07:36 MCV 92.6 fL (78.0-98.0) 06/15/20 07:36 Plt Count 180 thou/uL (130-400) 06/15/20 07:36 Neutrophils % 65.5 % (42.0-75.0) 06/15/20 07:36 Sodium 137 mmol/L (136-145) 06/15/20 07:36 Potassium 4.2 mmol/L (3.5-5.1) 06/15/20 07:36 Chloride 106 mmol/L (98-107) 06/15/20 07:36 Carbon Dioxide 21 mmol/L (23-31) L 06/15/20 07:36 BUN 15 mg/dL (8.4-25.7) 06/15/20 07:36 Creatinine 0.83 mg/dL (0.7-1.3) 06/15/20 07:36 Glucose 82 mg/dL (80-115) 06/15/20 07:36 Calcium 8.5 mg/dL (7.8-10.44) 06/15/20 07:36 Total Bilirubin 0.5 mg/dL (0.2-1.2) 06/14/20 09:49 AST 16 U/L (5-34) 06/14/20 09:49 ALT 15 U/L (8-55) 06/14/20 09:49 Alkaline Phosphatase 87 U/L (40-110) 06/14/20 09:49 Troponin I 0.012 ng/mL (< 0.028) 06/14/20 09:49 Serum Total Protein 7.2 g/dL (5.8-8.1) 06/14/20 09:49 Albumin 4.2 g/dL (3.4-4.8) 06/14/20 09:49 - Radiology Interpretation CT scan - head Status: image reviewed by me, report reviewed by me Additional Comment: Bilateral SAH MRI - head Status: image reviewed by me, report reviewed by me Additional Comment: Bilateral SAH but no acute intracranial pathology. PN A/P (1) Hemorrhagic stroke Code(s): I61.9 - NONTRAUMATIC INTRACEREBRAL HEMORRHAGE, UNSPECIFIED Status: Acute (2) Atrial fibrillation Code(s): I48.91 - UNSPECIFIED ATRIAL FIBRILLATION Status: Acute (3) Coronary artery disease Code(s): I25.10 - ATHSCL HEART DISEASE OF [place] CORONARY ARTERY W/O ANG PCTRS Status: Acute (4) Hypertension Code(s): I10 - ESSENTIAL (PRIMARY) HYPERTENSION Status: Acute (5) Subarachnoid hemorrhage Code(s): I60.9 - NONTRAUMATIC SUBARACHNOID HEMORRHAGE, UNSPECIFIED Status: Acute (6) Thrombocytopenia Code(s): D69.6 - THROMBOCYTOPENIA, UNSPECIFIED Status: Acute (7) Hypertension Code(s): I10 - ESSENTIAL (PRIMARY) HYPERTENSION Status: Chronic - Plan Daily Plan: plan discussed w/ family, PT/OT, speech therapy, DVT proph w/SCDs 70M with history significant for atrial fibrillation, CAD, HTN, and hemorrhagic stroke presented with acute onset of unitelligable speech and right facial droop which resloved in 2-3 hpurs. Patient back at baseline. CT brain showed bilateral subarachnoid hemorrhage. Brain MRI reviewed and showed subarachnoid blood over bilateral fronterparietal lobes and old blood deep to the Let caudate nucleus. Neurogsurgery did not recommend surgical intervention at this time. EEG reviewed and was negative for seizure activity. Continue Keppra for seizure prophylaxis Neurochecks every 4 hours. Strict BP control with prn hydralazine and labetalol to maintain SBP <160 No antiplatelets or anticoagulants Continue medical management per medicine and neurosurgery PT/OT/Speech Plan discussed in detail with the patient and the .
[2020-06-15] MEDS: Dronedarone HCl 400 MG TAB PO SCH (17:30)
[2020-06-15] MEDS: Lisinopril 10 MG TAB PO SCH (20:40)
[2020-06-16] MEDS: Sodium Chloride 0.9% 1,000 ML IV SCH ×2 (05:00→22:13)
[2020-06-16 05:17] LABS: #Eosinphils 0.2 thou/uL (0.0-0.7); #Lymphocytes 1.8 thou/uL (1.20-3.40); #Monocytes 0.6 thou/uL (0.11-0.59); #Neutrophils 3.7 thou/uL (1.40-6.50); %Basophils 0.6 % (0.0-1.0); %Eosinophils 3.5 % (0.0-10.0); %Lymphocytes 28.1 % (21.0-51.0); %Monocytes 9.8 % (0.0-10.0); %Neutrophils 58.1 % (42.0-75.0); Hemoglobin 13.5 g/dL (14.0-18.0); Mean Corpuscular HGB CONC 33.8 g/dL (32.0-36.0); Mean Corpuscular Hemoglobin 31.2 pg (27.0-31.0); Mean Corpuscular Volume 92.3 fL (78.0-98.0); Mean Platelet Volume 9.5 fL (7.4-10.4); Platelet Count 138 thou/uL (130-400); RBC Distribution Width 12.6 % (11.5-14.5); Red Blood Cell (RBC) Count 4.33 mill/uL (4.70-6.10); White Blood Cell (WBC) Count 6.4 thou/uL (4.8-10.8)
[2020-06-16 05:55] VITALS: BMI 24.7
[2020-06-16 05:59] LABS: Anion Gap 12 mmol/L (10-20); BUN (Urea Nitrogen) 17 mg/dL (8.4-25.7); Calc. Creatinine Clearance 116 mL/min (70-130); Calcium 8.4 mg/dL (7.8-10.44); Carbon Dioxide 24 mmol/L (23-31); Chloride 107 mmol/L (98-107); Estimated GFR-MDRD Greater than 90; Glucose 87 mg/dL (80-115); Potassium 4.1 mmol/L (3.5-5.1); Sodium 139 mmol/L (136-145)
--- NOTE | 2020-06-16 08:13 | PRG ---
DATE OF SERVICE: 06/16/2020 I saw Joshua Aguilera in his hospital room this morning. He is relaxing comfortably. He had some episodes of loss of sensation in the left forearm and hand. This has happened twice since his hospitalization. It bruised transient each time. Otherwise, there are no events since yesterday. Vital signs are relatively stable. His neurological examination is much better than his admission. His speech is fluent. He understands everything. There is no expressive dysphasia. He moves right and left arms well. Mr. Aguilera had subarachnoid hemorrhage twice this year. First of all, he was on Eliquis and was mostly intraventricular. He returned with subarachnoid hemorrhage some time in the last few weeks with blood layering in the central sulcus on both sides. This blood is likely irritating the cortex under and giving him transient neurological changes that returned to baseline. The source of the hemorrhage is unclear. He is currently not taking any antiplatelet agents and no blood thinners. We could start our search for structural abnormality and Dr. Keyes is going to come in and think about angiography. (15min) Job ID: [id number] [facility]
[2020-06-16] MEDS: niMODipine 30 MG CAP PO SCH (10:03)
[2020-06-16] MEDS: Dronedarone HCl 400 MG TAB PO SCH ×2 (10:03→17:25)
[2020-06-16] MEDS: levETIRAcetam 500 MG TAB PO SCH ×2 (10:03→22:12)
--- NOTE | 2020-06-16 13:12 | PDOC.NEUPN ---
- Subjective Encounter Date: 06/16/20 Subjective: Patient feels much better today. - Objective Vital Signs & Weight: Vital Signs (12 hours) Temp Pulse Resp BP Pulse Ox 06/16/20 12:00 97.5 F L 52 L 12 114/69 93 L 06/16/20 08:05 95 06/16/20 08:00 98.1 F 54 L 20 143/68 H 95 06/16/20 04:00 98.0 F 61 18 114/61 96 Weight Weight 213 lb 14.4 oz I&O: 06/15/20 06/16/20 06/17/20 06:59 06:59 06:59 Intake Total 300 1800 Balance 300 1800 Result Diagrams: 06/16/20 04:44 06/16/20 04:44 Additional Labs: Accuchecks 06/14/20 09:46 POC Glucose 90 Radiology Reviewed by me: Yes EKG Reviewed by me: Yes ROS - Review of Systems Constitutional: denies: fever, chills, sweats, weakness, malaise, other Eyes: denies: pain, vision change, conjunctivae inflammation, eyelid inflammation, redness, other ENT: denies: ear pain, ear discharge, nose pain, nose discharge, nose congestion, mouth pain, mouth swelling, throat pain, throat swelling, other Respiratory: denies: cough, dry, shortness of breath, hemoptysis, SOB with excertion, pleuritic pain, sputum, wheezing, other Cardiovascular: reports: AFIB Gastrointestinal: denies: nausea, vomiting, abdominal pain, diarrhea, constipation, melena, hematochezia, other Genitourinary: denies: dysuria, frequency, incontinence, hematuria, retention, other Musculoskeletal: denies: neck pain, shoulder pain, arm pain, back pain, hand pain, leg pain, foot pain, other Skin: denies: rash, lesions, hannah, bruising, other Neurological: reports: change in speech. denies: weakness, numbness, incoordination, confusion, seizures, other - Medication Medications: Active Medications Generic Name Dose Route Start Last Admin Trade Name Freq PRN Reason Stop Dose Admin Dronedarone 400 mg 06/15/20 17:00 06/16/20 10:03 Dronedarone Hcl 400 Mg Tab PO 400 mg BID- EVITA Administration Sodium Chloride 1,000 mls @ 75 mls/hr 06/14/20 12:30 06/16/20 05:00 Normal Saline 0.9% IV 1,000 mls .[id number] EVITA Administration Levetiracetam 500 mg 06/14/20 21:00 06/16/20 10:03 Levetiracetam 500 Mg Tab PO 500 mg BID EVITA Administration Lisinopril 10 mg 06/15/20 21:00 06/15/20 20:40 Lisinopril 10 Mg Tab PO 10 mg HS EIVTA Administration Nimodipine 30 mg 06/16/20 09:00 06/16/20 10:03 Nimodipine 30 Mg Cap PO 30 mg DAILY EVITA Administration Pantoprazole Sodium 40 mg 06/15/20 09:00 06/16/20 10:03 Pantoprazole 40 Mg Tab PO 40 mg DAILY EVITA Administration Sodium Chloride 10 ml 06/15/20 21:00 06/16/20 10:08 Flush - Normal Saline 10 Ml Syringe IVF 10 ml Q12HR EVITA Administration - Exam General Appearance: awake alert Eye: PERRL ENT: normocephalic atraumatic Neck: supple Respiratory: CTAB Cardiovascular: RRR Gastrointestinal: soft Extremities: no cyanosis Skin: normal turgor Neurological: no new deficit, speech deficit Musculoskeletal: normal tone, normal strength, no muscle wasting PSYCH: normal affect, normal behavior, A&O x 3 Results - Labs Result Diagrams: 06/16/20 04:44 06/16/20 04:44 Lab results: WBC 6.4 thou/uL (4.8-10.8) 06/16/20 04:44 Hgb 13.5 g/dL (14.0-18.0) L 06/16/20 04:44 Hct 40.0 % (42.0-52.0) L 06/16/20 04:44 MCV 92.3 fL (78.0-98.0) 06/16/20 04:44 Plt Count 138 thou/uL (130-400) 06/16/20 04:44 Neutrophils % 58.1 % (42.0-75.0) 06/16/20 04:44 Sodium 139 mmol/L (136-145) 06/16/20 04:44 Potassium 4.1 mmol/L (3.5-5.1) 06/16/20 04:44 Chloride 107 mmol/L (98-107) 06/16/20 04:44 Carbon Dioxide 24 mmol/L (23-31) 06/16/20 04:44 BUN 17 mg/dL (8.4-25.7) 06/16/20 04:44 Creatinine 0.84 mg/dL (0.7-1.3) 06/16/20 04:44 Glucose 87 mg/dL (80-115) 06/16/20 04:44 Calcium 8.4 mg/dL (7.8-10.44) 06/16/20 04:44 Total Bilirubin 0.5 mg/dL (0.2-1.2) 06/14/20 09:49 AST 16 U/L (5-34) 06/14/20 09:49 ALT 15 U/L (8-55) 06/14/20 09:49 Alkaline Phosphatase 87 U/L (40-110) 06/14/20 09:49 Troponin I 0.012 ng/mL (< 0.028) 06/14/20 09:49 Serum Total Protein 7.2 g/dL (5.8-8.1) 06/14/20 09:49 Albumin 4.2 g/dL (3.4-4.8) 06/14/20 09:49 - Radiology Interpretation MRI - head Status: image reviewed by me, report reviewed by me Additional Comment: bilateral SAH PN A/P (1) Hemorrhagic stroke Code(s): I61.9 - NONTRAUMATIC INTRACEREBRAL HEMORRHAGE, UNSPECIFIED Status: Acute (2) Atrial fibrillation Code(s): I48.91 - UNSPECIFIED ATRIAL FIBRILLATION Status: Acute (3) Coronary artery disease Code(s): I25.10 - ATHSCL HEART DISEASE OF [place] CORONARY ARTERY W/O ANG PCTRS Status: Acute (4) Hypertension Code(s): I10 - ESSENTIAL (PRIMARY) HYPERTENSION Status: Acute (5) Subarachnoid hemorrhage Code(s): I60.9 - NONTRAUMATIC SUBARACHNOID HEMORRHAGE, UNSPECIFIED Status: Acute (6) Thrombocytopenia Code(s): D69.6 - THROMBOCYTOPENIA, UNSPECIFIED Status: Acute (7) Hypertension Code(s): I10 - ESSENTIAL (PRIMARY) HYPERTENSION Status: Chronic - Plan Daily Plan: PT/OT, speech therapy 70M with history significant for atrial fibrillation, CAD, HTN, and hemorrhagic stroke presented with acute onset of unitelligable speech and right facial droop which resloved in 2-3 hpurs. Patient back at baseline. CT brain showed bilateral subarachnoid hemorrhage. Neurosurgery on board. Brain MRI reviewed and showed subarachnoid blood over bilateral fronterparietal lobes and old blood deep to the Let caudate nucleus. Awaituing Dr. Keyes input regarding further plan., EEG reviewed and was negative for seizure activity. Continue Keppra for seizure prophylaxis Neurochecks every 4 hours. Strict BP control with prn hydralazine and labetalol to maintain SBP <160 No antiplatelets or anticoagulants Continue medical management per medicine and neurosurgery PT/OT/Speech Plan discussed in detail with the patient and the and during stropke rounds.
--- NOTE | 2020-06-16 18:48 | PDOC.HOSPP ---
- Subjective Encounter Date: 06/16/20 Encounter Time: 09:45 Subjective: pt up in bed no complains - Objective Vital Signs & Weight: Vital Signs (12 hours) Temp Pulse Resp BP Pulse Ox 06/16/20 16:00 98.2 F 58 L 19 108/66 93 L 06/16/20 12:00 97.5 F L 52 L 12 114/69 93 L 06/16/20 08:05 95 06/16/20 08:00 98.1 F 54 L 20 143/68 H 95 Weight Weight 213 lb 14.4 oz I&O: 06/15/20 06/16/20 06/17/20 06:59 06:59 06:59 Intake Total 300 1800 870 Balance 300 1800 870 Result Diagrams: 06/16/20 04:44 06/16/20 04:44 Additional Labs: Accuchecks 06/14/20 09:46 POC Glucose 90 Hospitalist ROS - Review of Systems Cardiovascular: denies: chest pain, palpitations, orthopnea, paroxysmal noc. dy spnea, edema, light headedness, other Gastrointestinal: denies: nausea, vomiting, abdominal pain, diarrhea, constipation, melena, hematochezia, other Genitourinary: denies: dysuria, frequency, incontinence, hematuria, retention, other - Medication Medications: Active Medications Generic Name Dose Route Start Last Admin Trade Name Freq PRN Reason Stop Dose Admin Dronedarone 400 mg 06/15/20 17:00 06/16/20 17:25 Dronedarone Hcl 400 Mg Tab PO 400 mg BID-WM EVITA Administration Sodium Chloride 1,000 mls @ 75 mls/hr 06/14/20 12:30 06/16/20 05:00 Normal Saline 0.9% IV 1,000 mls .[id number] EVITA Administration Levetiracetam 500 mg 06/14/20 21:00 06/16/20 10:03 Levetiracetam 500 Mg Tab PO 500 mg BID EVITA Administration Lisinopril 10 mg 06/15/20 21:00 06/15/20 20:40 Lisinopril 10 Mg Tab PO 10 mg HS EVITA Administration Nimodipine 30 mg 06/16/20 09:00 06/16/20 10:03 Nimodipine 30 Mg Cap PO 30 mg DAILY EVITA Administration Pantoprazole Sodium 40 mg 06/15/20 09:00 06/16/20 10:03 Pantoprazole 40 Mg Tab PO 40 mg DAILY EVITA Administration Sodium Chloride 10 ml 06/15/20 21:00 06/16/20 10:08 Flush - Normal Saline 10 Ml Syringe IVF 10 ml Q12HR EVITA Administration - Exam Neck: negative: supple, symmetric, no JVD, no thyromegaly, no lymphadenopathy, no carotid bruit, JVD Heart: negative: RRR, no murmur, no gallops, no rubs, normal peripheral pulses, irregular, diminshed peripheral pulses, murmur present, II/IV, III/IV Respiratory: negative: CTAB, no wheezes, no rales, no ronchi, normal chest expansion, no tachypnea, normal percussion, rales, rhonchi, tachypneic, wheezes Gastrointestinal: negative: soft, non-tender, non-distended, normal bowel sounds, no palpable masses, no hepatomegaly, no splenomegaly, no bruit, no guarding, no rigidity, tender to palpation, distended, diminished bowl sounds, voluntary guarding Hosp A/P (1) Atrial fibrillation Code(s): I48.91 - UNSPECIFIED ATRIAL FIBRILLATION Status: Acute (2) Coronary artery disease Code(s): I25.10 - ATHSCL HEART DISEASE OF [place] CORONARY ARTERY W/O ANG PCTRS Status: Acute (3) Hypertension Code(s): I10 - ESSENTIAL (PRIMARY) HYPERTENSION Status: Acute (4) Subarachnoid hemorrhage Code(s): I60.9 - NONTRAUMATIC SUBARACHNOID HEMORRHAGE, UNSPECIFIED Status: Acute (5) Hypertension Code(s): I10 - ESSENTIAL (PRIMARY) HYPERTENSION Status: Chronic - Plan Patient seen by neurology waiting on neurosurgery's recommendation. Discharge when okay with neurosurgery.
[2020-06-16] MEDS: Lisinopril 10 MG TAB PO SCH (22:12)
[2020-06-17 05:02] LABS: #Eosinphils 0.2 thou/uL (0.0-0.7); #Lymphocytes 1.7 thou/uL (1.20-3.40); #Monocytes 0.6 thou/uL (0.11-0.59); #Neutrophils 3.8 thou/uL (1.40-6.50); %Basophils 0.4 % (0.0-1.0); %Eosinophils 3.5 % (0.0-10.0); %Lymphocytes 26.4 % (21.0-51.0); %Monocytes 9.9 % (0.0-10.0); %Neutrophils 59.7 % (42.0-75.0); Mean Corpuscular HGB CONC 33.9 g/dL (32.0-36.0); Mean Corpuscular Hemoglobin 31.4 pg (27.0-31.0); Mean Corpuscular Volume 92.7 fL (78.0-98.0); Mean Platelet Volume 8.2 fL (7.4-10.4); Platelet Count 162 thou/uL (130-400); RBC Distribution Width 12.5 % (11.5-14.5); Red Blood Cell (RBC) Count 4.15 mill/uL (4.70-6.10); White Blood Cell (WBC) Count 6.3 thou/uL (4.8-10.8)
[2020-06-17 05:28] LABS: Anion Gap 13 mmol/L (10-20); BUN (Urea Nitrogen) 14 mg/dL (8.4-25.7); Calc. Creatinine Clearance 114 mL/min (70-130); Calcium 8.3 mg/dL (7.8-10.44); Carbon Dioxide 21 mmol/L (23-31); Chloride 108 mmol/L (98-107); Estimated GFR-MDRD 90; Glucose 92 mg/dL (80-115); Potassium 4.4 mmol/L (3.5-5.1); Sodium 138 mmol/L (136-145)
--- NOTE | 2020-06-17 07:41 | PRG ---
DATE OF SERVICE: 06/17/2020 I saw Mr. Aguilera in his hospital room this morning. By report, Dr. Cano reviewed the case and felt angiography was likely not warranted. Mr. Aguilera has not had any more episodes of dysesthesia. He has had some occasional paresthesias of the left hand. Overnight, there have been no fevers recorded. Blood pressures have been between 130s and 140s. His neurological examination is at his baseline currently. Mr. Aguilera has some subarachnoid blood in the central sulcus on both sides. This seems to be irritating the cortical surface manifested by occasional paresthesias of the hand that come and go. In the absence of angiography, I do not see anything that can be treated with surgical intervention. Mr. Aguilera can be discharged from the hospital. A low dose of Keppra might stabilize cortical circuitry. A followup CT scan can be done in 4 weeks, we will call with the results of that investigation. (15 min) Job ID: [id number] MTDD
[2020-06-17] MEDS: levETIRAcetam 500 MG TAB PO SCH (08:09)
[2020-06-17] MEDS: niMODipine 30 MG CAP PO SCH (08:09)
[2020-06-17] MEDS: Dronedarone HCl 400 MG TAB PO SCH (08:09)
[2020-06-17] MEDS ORDERED: Iopamidol 370 76% 100 ML VIAL ONE (08:58)
[2020-06-17] MEDS ORDERED: Lidocaine 1% (PF) 30 ML VIAL ONE (09:31)
[2020-06-17] MEDS: Sodium Chloride 0.9% 1,000 ML IV SCH (11:29)
[2020-06-17 12:27] VITALS: TEMP 97.6
[2020-06-17 16:43] VITALS: BP 138/70
--- NOTE | 2020-06-19 15:47 | EEG ---
DATE OF SERVICE: 06/15/2020 This EEG was performed using 24-channel [employer] video digital EEG machine with 24- disk electrodes. This was an extended 2 hours 6 minutes of inpatient video EEG recording. Digital analysis of the EEG was done for spike and seizure detection, which revealed no abnormalities. BACKGROUND: There is a nonsustained posterior background rhythm of 8 to 8.5 Hz. Minimal activity seen with eye opening and closure. HYPERVENTILATION: Not performed. PHOTIC STIMULATION: Not performed. SLEEP: Drowsiness is observed. EEG DIAGNOSES: 1. Occasional irregular theta activity seen during the recording. 2. Nonsustained posterior background rhythm. CLINICAL INTERPRETATION: This EEG is consistent with mild generalized nonspecific cerebral dysfunction. Job ID: [id number] [facility]
== END 2020-06-17 16:37 | disposition home or self-care (01) | DRG 65 ==
LOC: ERS 09:30 → 2SE 16:23
PROVIDERS: ADMIT Neurological Surgery; ATTEND Neurological Surgery
PROC: B3141ZZ Fluoroscopy of Left Common Carotid Artery using Low Osmolar Contrast (ICD-10-PCS; principal; 2020-06-17)
DX: I60.8 Other nontraumatic subarachnoid hemorrhage (principal); G81.94 Hemiplegia, unspecified affecting left nondominant side; R47.81 Slurred speech; R29.810 Facial weakness; I25.10 Atherosclerotic heart disease of native coronary artery without angina pectoris; I10 Essential (primary) hypertension; I48.91 Unspecified atrial fibrillation; F17.210 Nicotine dependence, cigarettes, uncomplicated; R40.2362 Coma scale, best motor response, obeys commands, at arrival to emergency department; R40.2142 Coma scale, eyes open, spontaneous, at arrival to emergency department; R40.2252 Coma scale, best verbal response, oriented, at arrival to emergency department; D69.6 Thrombocytopenia, unspecified; R20.2 Paresthesia of skin; I69.220 Aphasia following other nontraumatic intracranial hemorrhage; Z79.899 Other long term (current) drug therapy; Z79.01 Long term (current) use of anticoagulants
CPT/HCPCS: 36215; 36216; 36415; 36416; 70450; 70496; 70553; 80048; 80053; 84484; 85025; 85610; 85730; 87635; 93005; 95712; 95816; 95819; J1644; J2001; Q9967; U0003

== ENCOUNTER 2020-07-23 13:46 | Observation (INO) | payer OTHER ==
[2020-07-23] MEDS ORDERED: Iopamidol-370 76% 500 ML 1 ML ONE (14:32)
--- NOTE | 2020-07-23 14:47 | RAD ---
XR Chest 1 View Portable HISTORY: Altered mental status COMPARISON: 04/01/2020 FINDINGS: The heart size is normal. The lungs are well expanded without focal areas of consolidation, pneumothorax or pleural effusions. IMPRESSION: No radiographic evidence of acute cardiopulmonary process.
[2020-07-23 15:21] LABS: #Eosinphils 0.2 thou/uL (0.0-0.7); #Lymphocytes 1.7 thou/uL (1.20-3.40); #Monocytes 0.7 thou/uL (0.11-0.59); #Neutrophils 4.6 thou/uL (1.40-6.50); %Basophils 0.4 % (0.0-1.0); %Eosinophils 2.8 % (0.0-10.0); %Lymphocytes 23.5 % (21.0-51.0); %Monocytes 9.7 % (0.0-10.0); %Neutrophils 63.5 % (42.0-75.0); Hemoglobin 13.8 g/dL (14.0-18.0); Mean Corpuscular HGB CONC 33.2 g/dL (32.0-36.0); Mean Corpuscular Hemoglobin 30.8 pg (27.0-31.0); Mean Platelet Volume 8.9 fL (7.4-10.4); Platelet Count 158 thou/uL (130-400); Red Blood Cell (RBC) Count 4.47 mill/uL (4.70-6.10); White Blood Cell (WBC) Count 7.2 thou/uL (4.8-10.8)
[2020-07-23 15:27] LABS: INR-International Normal Ratio 0.9; PTT 28.5 sec (22.9-36.1); Prothrombin Time 12.7 sec (12.0-14.7)
[2020-07-23 15:44] LABS: ALT (SGPT) 10 U/L (8-55); AST (SGOT) 17 U/L (5-34); Albumin 3.8 g/dL (3.4-4.8); Alkaline Phosphatase 85 U/L (40-110); Anion Gap 12 mmol/L (10-20); BUN (Urea Nitrogen) 19 mg/dL (8.4-25.7); Bilirubin, Total 0.3 mg/dL (0.2-1.2); Calc. Creatinine Clearance 0 mL/min (70-130); Calcium 9.2 mg/dL (7.8-10.44); Carbon Dioxide 24 mmol/L (23-31); Chloride 104 mmol/L (98-107); Glucose 94 mg/dL (80-115); Potassium 4.3 mmol/L (3.5-5.1); Protein, Total 6.8 g/dL (5.8-8.1); Sodium 136 mmol/L (136-145)
--- NOTE | 2020-07-23 19:35 | CT ---
CT arteriogram head with IV contrast and 3-D imaging HISTORY: Parenchymal hemorrhage. COMPARISON: 06/14/2020. FINDINGS: The round [place] is intact. Good flow into each cerebral and cerebellar system. Hyperdensity associated with the right frontal sulci is similar to the recent noncontrast CT. No foca l vascular lesions are apparent. Perhaps minimal hyperemia. The oval 1.2 cm hyperdense fluid collection associated with the varela matter and varela-white junction o f the left parietal lobe is unchanged in size and appearance. No adjacent vascular abnormalities. Ventricles are unremarkable. IMPRESSION : No acute vascular abnormalities are demonstrated. Areas of right frontal subarachnoid and left pariet al parenchymal hemorrhage are stable.
[2020-07-23] MEDS ORDERED: Acetaminophen 325 MG TAB PO PRN ×2 (22:00→22:05)
[2020-07-23] MEDS ORDERED: Ondansetron PF 4 MG/2 ML Vial IVP PRN ×2 (22:00→22:05)
[2020-07-23] MEDS ORDERED: Ondansetron ODT 4 MG TAB SL PRN (22:00)
[2020-07-23] MEDS ORDERED: Acetaminophen 650 MG Suppository PR PRN (22:05)
[2020-07-23] MEDS ORDERED: Ondansetron ODT 4 MG TAB PO PRN (22:05)
[2020-07-23] MEDS ORDERED: Labetalol HCl 100 MG/20 ML VIAL SLOW IVP PRN (22:05)
[2020-07-23] MEDS ORDERED: Senokot S 8.6-50 MG TAB PO PRN (22:05)
[2020-07-23] MEDS ORDERED: Guaifenesin DM 100-10/5 ML UDCUP PO PRN (22:05)
[2020-07-23] MEDS ORDERED: Famotidine 20 MG TAB PO SCH (22:15)
[2020-07-23] MEDS ORDERED: levETIRAcetam 500 MG TAB PO SCH (22:15)
[2020-07-23] MEDS ORDERED: Dronedarone HCl 400 MG TAB PO SCH (22:15)
[2020-07-23] MEDS ORDERED: Lisinopril 10 MG TAB PO SCH (22:15)
[2020-07-24 00:22] VITALS: BMI 23.4
[2020-07-24 05:17] LABS: #Eosinphils 0.2 thou/uL (0.0-0.7); #Lymphocytes 1.5 thou/uL (1.20-3.40); #Monocytes 0.5 thou/uL (0.11-0.59); #Neutrophils 3.4 thou/uL (1.40-6.50); %Basophils 0.6 % (0.0-1.0); %Eosinophils 3.8 % (0.0-10.0); %Lymphocytes 26.2 % (21.0-51.0); %Monocytes 9.4 % (0.0-10.0); %Neutrophils 60.1 % (42.0-75.0); Hemoglobin 13.6 g/dL (14.0-18.0); Mean Corpuscular HGB CONC 33.2 g/dL (32.0-36.0); Mean Corpuscular Hemoglobin 31.2 pg (27.0-31.0); Mean Corpuscular Volume 93.9 fL (78.0-98.0); Mean Platelet Volume 8.6 fL (7.4-10.4); Platelet Count 157 thou/uL (130-400); RBC Distribution Width 11.9 % (11.5-14.5); Red Blood Cell (RBC) Count 4.35 mill/uL (4.70-6.10); White Blood Cell (WBC) Count 5.6 thou/uL (4.8-10.8)
[2020-07-24 05:43] LABS: Anion Gap 11 mmol/L (10-20); BUN (Urea Nitrogen) 17 mg/dL (8.4-25.7); Calc. Creatinine Clearance 94 mL/min (70-130); Calcium 8.7 mg/dL (7.8-10.44); Carbon Dioxide 24 mmol/L (23-31); Chloride 106 mmol/L (98-107); Glucose 89 mg/dL (80-115); Potassium 4.1 mmol/L (3.5-5.1); Sodium 137 mmol/L (136-145)
--- NOTE | 2020-07-24 07:16 | HP ---
PRIMARY CARE PHYSICIAN: Glen King MD CHIEF COMPLAINT: Confusion. HISTORY OF PRESENT ILLNESS: This is a 70-year-old white male with a known history of multiple recurrent intracranial hemorrhage at the subarachnoid and intraparenchymal hemorrhage, these were spontaneous, first one happened after starting Eliquis, but the 2nd one happened when he was on no blood thinners at all. The patient had some aphasia, both receptive and expressive previously. This had improved with Speech Therapy as an outpatient and then the morning of admission, the patient was noted by to be trying to put the coffee can back where the bunch maker is and also saying some things that were normal for him and some things that were a little off the wall. She called Dr. Keyes's office and was directed to go and get a CT scan as an outpatient. This was reported to have a new intracranial hemorrhage on it along with some change in the subarachnoid hemorrhage and so, the patient was instructed to go straight to the emergency room. The patient's reports that he remains a little bit confused, on and off, but has not changed at all since this morning and he has had no progression and he has no complaints. Denies any headache and he is still able to walk normally, though slow, which is normal for him. She also reports that he has not had any trouble swallowing with his recurrent bleeds, just speaking, and has been able to tolerate a normal diet. REVIEW OF SYSTEMS: Unable to obtain secondary to aphasia and mental status. However, reports she has not noticed any fevers. No cough. No vomiting or diarrhea. No change in his urinary habits. Neurologic review of systems, as per the HPI. PAST MEDICAL HISTORY: 1. Hypertension for which he was on no medication, was well controlled up until this last year when he had the bleed. 2. Atrial fibrillation. 3. Hemorrhagic cerebrovascular accident, as per HPI. PAST SURGICAL HISTORY: Elbow surgery, shoulder surgery, knee surgery, and cataract surgery. SOCIAL HISTORY: The patient has smoked half pack per day and quit in February of 2020. No alcohol or illicit drug use. Lives at home with his who is his medical decision maker. Her name is Lakia Aguilera. FAMILY HISTORY: Mother at approximately age 70 of blood poisoning. Father at age 83 of unknown causes. ALLERGIES: NONE. CURRENT MEDICATIONS: 1. Multaq 400 mg twice a day. 2. Lisinopril 10 mg daily. 3. Diltiazem 180 mg at night. 4. Keppra 500 mg twice a day. PHYSICAL EXAMINATION: VITAL SIGNS: Blood pressure 112/60, pulse 55, respirations 16, temperature 98.0, O2 saturation 97% on room air. GENERAL: This is a well-developed, well-nourished white male, in no acute distress. HEENT: Pupils are equal, round, and reactive to light and accommodation. Oropharynx clear without lesions, erythema, or exudate. NECK: Supple. No lymphadenopathy. No thyroid nodules or enlargement. No JVD. HEART: Regular rate and rhythm. No murmurs, rubs, or gallops. LUNGS: Clear to auscultation bilaterally. No wheezes, crackles, or rhonchi. ABDOMEN: Soft, nontender to palpation. Normoactive bowel sounds. No hepatosplenomegaly or other masses. EXTREMITIES: No clubbing, cyanosis, or edema. SKIN: No rashes or other lesions noted. NEUROLOGIC: The patient moves all extremities equally with good strength and 2+ reflexes in all extremities. He does follow commands. His cranial nerves are intact and equal bilaterally without any facial droop. He has normal extraocular movements. The patient does have problems with understanding questions, but mostly an expressive type aphasia. Sometimes he can answer the right words and sometimes he stumbles a little bit or says something that does not quite make sense. His says that most of this is from previous, though some of his confusion is new today. LABORATORY DATA: CBC with a hemoglobin of 13.8, hematocrit of 41.5, the rest is normal. Coagulation profile normal. Complete metabolic panel is within normal limits. Troponin is negative x1. Chest x-ray; I did review the chest x-ray done in the emergency room along with the radiologist's report and showed no acute cardiopulmonary process. CT scan of the brain without contrast shows scattered areas of subarachnoid hemorrhage in the cerebral hemispheres bilaterally. The subarachnoid hemorrhage in the left frontal region has resolved, but there is persistent subarachnoid hemorrhage in the right frontal region with subarachnoid hemorrhage in the parafalcine location and right parietal region and superiorly at the vertex of the right. There is also interval development of a parenchymal hemorrhage in the left parietal lobe measuring 1.3 cm. No other significant changes. ASSESSMENT: 1. Acute on chronic intracranial hemorrhage. Per Dr. White, he was concerned the patient may have some amyloid angiopathy as he is not on any blood thinners and his angiogram was normal last time. He did recommend the patient come in for observation in the hospital. We are consulting Dr. Grey who is on-call and ER and did discuss the case with Sindhu and they recommend the patient be on q.2 hours neuro checks, but this can be done on the stroke floor. He will be observed overnight. If he has any deterioration, he will have immediate CT scan. Otherwise, we will get a repeat CT scan in the morning to see if there are any changes to this hemorrhage. 2. History of hypertension, currently normal blood pressure. We will give antihypertensives if needed for any blood pressure elevations in the setting of intracranial hemorrhage. 3. Atrial fibrillation, currently in sinus rhythm. We will continue Multaq. 4. Gastrointestinal prophylaxis. We will put the patient on Pepcid twice a day. 5. Deep venous thrombosis prophylaxis. We will put SCDs on while the patient is in bed. No anticoagulants due to the patient's intracranial hemorrhages. CODE STATUS: The patient is a full code. Should he be incapacitated, his would be his medical decision maker, her name is Lakia Aguilera. Job ID: [id number]
--- NOTE | 2020-07-24 07:30 | PDOC.HOSPP ---
- Subjective Encounter Date: 07/24/20 Encounter Time: 09:00 Subjective: Patient a little confused from being out of his environment at home per ex-, but no changes overnight. Patient without complaints. - Objective Vital Signs & Weight: Vital Signs (12 hours) Temp Pulse Resp BP BP Pulse Ox 07/24/20 04:00 97.3 F L 54 L 18 113/71 96 07/24/20 00:15 97.7 F 56 L 16 119/72 96 07/23/20 23:41 119/72 07/23/20 22:15 98.6 F 57 L 16 138/65 94 L 07/23/20 22:05 96 Weight Weight 204 lb I&O: 07/23/20 07/24/20 07/25/20 06:59 06:59 06:59 Intake Total 540 Output Total 800 Balance -260 Result Diagrams: 07/24/20 04:40 07/24/20 04:40 Hospitalist ROS - Review of Systems ROS unobtainable: due to mental status - Exam General Appearance: NAD, awake alert ENT: moist mucosa Heart: RRR, no murmur, no gallops, no rubs Respiratory: CTAB, no wheezes, no rales, no ronchi Gastrointestinal: soft, non-tender, non-distended, normal bowel sounds Neurological: no focal deficits Psychiatric: normal affect, normal behavior Hosp A/P (1) Intraparenchymal hemorrhage of brain Code(s): I61.9 - NONTRAUMATIC INTRACEREBRAL HEMORRHAGE, UNSPECIFIED Status: Acute (2) Subarachnoid hemorrhage Code(s): I60.9 - NONTRAUMATIC SUBARACHNOID HEMORRHAGE, UNSPECIFIED Status: Chronic (3) Paroxysmal atrial fibrillation Code(s): I48.0 - PAROXYSMAL ATRIAL FIBRILLATION Status: Chronic (4) Hypertension Code(s): I10 - ESSENTIAL (PRIMARY) HYPERTENSION Status: Chronic - Plan Neuro checks, Neurosurgery consultation pending Repeat CT brain this morning show no changes. Possible d/c home if ok with Neurosurg. Will need specialist outpatient f/u to determine source of bleeds.
--- NOTE | 2020-07-24 08:39 | CON ---
DATE OF CONSULTATION: 07/24/2020 CHIEF COMPLAINT: Confusion. HISTORY OF PRESENT ILLNESS: Mr. Aguilera is a 70-year-old gentleman with multiple intracranial hemorrhages over recent months. He presented to the emergency department yesterday for increased confusion at home. Per report, he has no new focal neurologic deficits. He was previously on Eliquis for atrial fibrillation, however he is no longer currently on any anticoagulation. He was seen by Dr. Keyes's team in March for a left intraventricular hemorrhage. He subsequently was seen last month for bilateral subarachnoid hemorrhages. A CTA of the head was completed last month that was negative for vascular abnormalities. MRI of the brain completed last month was negative for cavernoma or other underlying lesions. Noncontrast CT of the brain completed yesterday demonstrates left frontal subarachnoid hemorrhages have resolved from prior scans, however right frontal subarachnoid hemorrhages remain present as well as a new left parietal parenchymal hemorrhage that is ovoid in shape measuring approximately 1.3 cm. A CTA of the head was subsequently ordered to assess for vascular abnormalities, and this was negative for vasculitis, AVM, aneurysm, or other obvious intracranial abnormalities. CT of the brain completed this morning demonstrates left parietal parenchymal hemorrhage is unchanged and stable in size. However, there is an increase in multifocal subarachnoid hemorrhage, particularly in the right frontal region. Case will be further discussed and imaging reviewed with Dr. Grey today. Patient will likely require a cerebrovascular neurologist in the city for further evaluation and workup. A connective tissue disorder may be at play and should be considered. Please call for any neurologic changes or other concerns. Job ID: [id number] MTDD
[2020-07-24] MEDS: levETIRAcetam 500 MG TAB PO SCH ×2 (08:41→21:19)
[2020-07-24] MEDS: Dronedarone HCl 400 MG TAB PO SCH ×2 (08:41→16:57)
[2020-07-24] MEDS: Famotidine 20 MG TAB PO SCH ×2 (08:41→21:18)
--- NOTE | 2020-07-24 08:53 | CT ---
CT BRAIN NONCONTRAST: DATE: 07/24/2020 HISTORY: 70-year-old male follow-up intracranial hemorrhage COMPARISON: 07/23/2020 FINDINGS: Small, approximately 1.3 x 1 cm left parietal subcortical intra-axial hematoma, unchanged. Multiple regions of subarachnoid hemorrhage in sulci, including moderate size region in right lateral mid frontal, very small amount at right superior frontal sulcus, tiny amount right paramedian right upper parietal, and tiny focus in the left postcentral sulcus. There is also a tiny focus of hemorrhage along inferior medial edge of left basal ganglia/caudate hea d. No new hemorrhage. No mass effect or midline shift. Mild dilation of ventricles. Calvarium is intact. No interval change overall. IMPRESSION: 1) several scattered foci of subarachnoid hemorrhage. 2.) Small left parietal intra-axial hemorrhage. 3) no interval change since yesterday 4) differential diagnosis includes: Cerebral amyloid angiopathy, RCVS (reversible cerebral vasoconstr iction syndrome), vasculitis (including primary [place] angiitis and drug-induced vasculitis), trauma, and anticoagulation therapy.
[2020-07-24] MEDS ORDERED: Lisinopril 10 MG TAB PO SCH (21:00)
[2020-07-25 05:28] VITALS: TEMP 97.3
--- NOTE | 2020-07-25 07:27 | PDOC.HOSPP ---
- Subjective Encounter Date: 07/25/20 Encounter Time: 10:00 Subjective: Patient had a little FONG this AM, resolved now. No changes in mental status. No new neurologic signs. - Objective Vital Signs & Weight: Vital Signs (12 hours) Temp Pulse Resp BP BP Pulse Ox 07/25/20 05:00 97.3 F L 46 L 20 115/60 95 07/25/20 01:30 97.8 F 62 16 128/72 95 07/24/20 21:18 121/72 07/24/20 20:00 98.2 F 64 16 121/72 96 Weight Weight 204 lb I&O: 07/24/20 07/25/20 07/26/20 06:59 06:59 06:59 Intake Total 540 240 Output Total 800 400 Balance -260 -160 Result Diagrams: 07/24/20 04:40 07/24/20 04:40 Hospitalist ROS - Review of Systems Constitutional: denies: fever, chills Respiratory: denies: cough, shortness of breath Cardiovascular: denies: chest pain, palpitations Gastrointestinal: denies: nausea, vomiting, abdominal pain - Medication Medications: Active Medications Generic Name Dose Route Start Last Admin Trade Name Freq PRN Reason Stop Dose Admin Diltiazem HCl 180 mg 07/24/20 21:00 07/24/20 21:19 Diltiazem Hcl Cd 180 Mg Capsule PO 180 mg HS EVITA Administration Dronedarone 400 mg 07/24/20 08:00 07/24/20 16:57 Dronedarone Hcl 400 Mg Tab PO 400 mg BID-WM EVITA Administration Famotidine 20 mg 07/24/20 09:00 07/24/20 21:18 Famotidine 20 Mg Tab PO 20 mg BID EVITA Administration Levetiracetam 500 mg 07/24/20 09:00 07/24/20 21:19 Levetiracetam 500 Mg Tab PO 500 mg BID EVITA Administration Lisinopril 10 mg 07/24/20 21:00 07/24/20 21:18 Lisinopril 10 Mg Tab PO 10 mg HS EVITA Administration - Exam General Appearance: NAD, awake alert ENT: moist mucosa Heart: RRR, no murmur, no gallops, no rubs Respiratory: CTAB, no wheezes, no rales, no ronchi Gastrointestinal: soft, non-tender, non-distended, normal bowel sounds Psychiatric: normal affect, normal behavior Psychiatric - other findings: mild aphasia, unchanged Hosp A/P (1) Intraparenchymal hemorrhage of brain Code(s): I61.9 - NONTRAUMATIC INTRACEREBRAL HEMORRHAGE, UNSPECIFIED Status: Acute (2) Subarachnoid hemorrhage Code(s): I60.9 - NONTRAUMATIC SUBARACHNOID HEMORRHAGE, UNSPECIFIED Status: Chronic (3) Paroxysmal atrial fibrillation Code(s): I48.0 - PAROXYSMAL ATRIAL FIBRILLATION Status: Chronic (4) Hypertension Code(s): I10 - ESSENTIAL (PRIMARY) HYPERTENSION Status: Chronic - Plan Neuro checks unchanged Neurosurgery cleared patient to d/c home. F/u with Dr. Keyes in next month and will need to get a referral to see specialist in [place]. Repeat CT brain yesterday morning showed no changes.
[2020-07-25] MEDS: Famotidine 20 MG TAB PO SCH (10:15)
[2020-07-25] MEDS: Dronedarone HCl 400 MG TAB PO SCH (10:15)
[2020-07-25] MEDS: levETIRAcetam 500 MG TAB PO SCH (10:16)
[2020-07-25 11:15] VITALS: BP 142/78
--- NOTE | 2020-07-25 11:25 | PRG ---
DATE OF SERVICE: 07/25/2020 This is a 50-minute initial hospital visit note, in which 50 minutes were spent reviewing the imaging record, evaluation, examination of the patient, formulation of plan. Greater than 50% time was spent in counseling on Joshua Aguilera on 1950. Please see my colleague, Ms. Street' note for full details. SUBJECTIVE: Mr. Aguilera is presented on Eliquis in the past for multi-compartmental intracranial hemorrhage. 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 At this point, he is neurologically intact. However, he does have [id number] expressive dysphasia. I extensively reviewed his MRI of the brain without and with contrast. CT angiograms both in the arterial and venous phase discussed his cerebral angiogram with Dr. Edvin Keyes and his CT scans. I have also observed his body habitus and the patient's history of lens dislocation, hyperextensibility peripheral joints throughout his life and his tall stature of 6 feet 6 inches. My concern is he has a connective tissue disease, perhaps along the lines of Sanjay-Danlos or Marfan syndrome. I think this has led to a and has increased his risk for multi-compartmental intracranial bleed and other stigmata of hyperextensible disease. His seizures have been controlled with levetiracetam that he will continue this. I would be fine with dismissal today. My office and I will work to get him scheduled with a cerebrovascular neurologist, but also genetic evaluation at the [facility] [place] [place] as I think that will be best going forward, I would be opposed to him being placed on further anticoagulation or antiplatelet medication. Our office will work to try and coordinate the referral process to [place] on an outpatient basis. DIAGNOSES: 1. 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 2. History of lens dislocation. Job ID: [id number]
--- NOTE | 2020-07-26 01:06 | DIS ---
DATE OF ADMISSION: 07/23/2020 DATE OF DISCHARGE: 07/25/2020 PRIMARY CARE PHYSICIAN: Glen King MD. REASON FOR ADMISSION: [id number] intracranial hemorrhage. DIAGNOSES AT DISCHARGE: 1. Kawio-ch-cheqobt intracranial hemorrhage, stable. 2. History of hypertension. 3. Paroxysmal atrial fibrillation. 4. 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 5. 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 PROCEDURES: 1. CT angio of the head with and without contrast showing no acute vascular abnormalities. There are areas of right frontal subarachnoid and left parietal parenchymal hemorrhage that are stable. 2. CT of the brain without contrast compared to the one done prior to admission shows stable small left parenchymal intraaxial hemorrhage 1.3 x 1 cm, also with several scattered foci of subarachnoid hemorrhage that are unchanged. CONSULTATIONS: Neurosurgery, Dr. Grey. SUMMARY OF HOSPITAL COURSE: This is a 70-year-old white male with a known history of multiple recurrent intracranial hemorrhage ever since a trial of Eliquis for his atrial fibrillation within the last year. He had recurrent hemorrhage off all blood thinners and then had some altered mental status, so we got an outpatient CT which showed a new intracranial hemorrhage. The patient was admitted to the neuro floor for observation. He had no further changes in his mental status. He had a repeat CT scan that showed no changes in the size of the intracranial hemorrhage. Dr. Grey was consulted. He evaluated the patient and determined that due to patient's very tall size, his history of lense dislocation and hyperextensible joints that he may have an Sanjay-Danlos type syndrome predisposing him to these bleeds. He is recommending an outpatient referral for both genetic testing and for a cerebral vascular neurologist in [place] that can be done as an outpatient. He has cleared the patient for discharge today and is going to have him follow up in their clinic. They will call him to set up an appointment. DISCHARGE MANAGEMENT: Discharged home. FOLLOWUP: Follow up with Dr. Keyes in the next month. The can call his office on Tuesday to discuss with them about when to set up a followup for. ACTIVITY: As tolerated. DIET: Regular diet. DISCHARGE MEDICATIONS: Continue all home medications. 1. Diltiazem 180 mg at night. 2. Multaq 400 mg twice daily. 3. Keppra 500 mg twice daily. 4. Lisinopril 10 mg at night. Job ID: [id number] [facility]
--- NOTE | 2020-08-02 15:24 | EKG ---
Test Reason : ER Blood Pressure : / mmHG Vent. Rate : 054 BPM Atrial Rate : 054 BPM P-R Int : 166 ms QRS Dur : 080 ms QT Int : 434 ms P-R-T Axes : 013 056 071 degrees QTc Int : 411 ms Sinus bradycardia Otherwise normal ECG Confirmed by ZOE MURRAY, KASHIF Quesada ([id number]), movie editor MAHNAZ GONZALEZ ([id number]) on 08/02/2020 3:24:19 PM Referred By: Confirmed By:KASHIF ENRIQUEZ MD
== END 2020-07-25 14:05 | disposition home or self-care (01) ==
LOC: ERS 13:46 → ERHOLD 15:31 → 2SE 21:48
PROVIDERS: ADMIT Emergency Medicine; ATTEND Emergency Medicine
DX: I61.9 Nontraumatic intracerebral hemorrhage, unspecified (principal); I60.9 Nontraumatic subarachnoid hemorrhage, unspecified; I10 Essential (primary) hypertension; I48.0 Paroxysmal atrial fibrillation; G40.802 Other epilepsy, not intractable, without status epilepticus; Z86.73 Personal history of transient ischemic attack (TIA), and cerebral infarction without residual deficits; Z87.891 Personal history of nicotine dependence; Z79.899 Other long term (current) drug therapy
CPT/HCPCS: 36415; 70450; 70496; 71045; 80048; 80053; 84484; 85025; 85610; 85730; 93005; G0378; Q9967

== ENCOUNTER 2021-10-12 07:28 | Inpatient (IN) | payer OTHER, MEDICARE ==
[2021-10-12] MEDS ORDERED: Acetaminophen 500 MG TAB ONE (08:07)
[2021-10-12] MEDS ORDERED: Cefepime 2 GM VIAL ONE (08:12)
[2021-10-12] MEDS ORDERED: Vancomycin 1 GM/200 ML BAG ONE (08:12)
[2021-10-12 09:01] LABS: #Eosinphils 0.1 thou/uL (0.0-0.7); #Lymphocytes 0.3 thou/uL (1.20-3.40); #Monocytes 0.4 thou/uL (0.11-0.59); #Neutrophils 7.1 thou/uL (1.40-6.50); %Eosinophils 0.6 % (0.0-10.0); %Lymphocytes 3.8 % (21.0-51.0); %Monocytes 4.5 % (0.0-10.0); %Neutrophils 91.1 % (42.0-75.0); Mean Corpuscular HGB CONC 32.2 g/dL (32.0-36.0); Mean Corpuscular Hemoglobin 30.9 pg (27.0-31.0); Mean Corpuscular Volume 95.9 fL (78.0-98.0); Mean Platelet Volume 8.1 fL (7.4-10.4); Platelet Count 138 thou/uL (130-400); RBC Distribution Width 12.5 % (11.5-14.5); Red Blood Cell (RBC) Count 5.16 mill/uL (4.70-6.10); White Blood Cell (WBC) Count 7.8 thou/uL (4.8-10.8)
[2021-10-12 09:32] LABS: ALT (SGPT) 18 U/L (8-55); AST (SGOT) 23 U/L (5-34); Acetaminophen Less than 6.0 mcg/mL (10.0-30.0); Albumin 3.8 g/dL (3.4-4.8); Alcohol Less than 10 mg/dL (Less than 10); Alkaline Phosphatase 95 U/L (40-110); Anion Gap 16 mmol/L (10-20); BUN (Urea Nitrogen) 30 mg/dL (8.4-25.7); Bilirubin, Total 0.5 mg/dL (0.2-1.2); Calc. Creatinine Clearance 0 mL/min (70-130); Calcium 8.5 mg/dL (7.8-10.44); Carbon Dioxide 18 mmol/L (23-31); Chloride 110 mmol/L (98-107); Globulin 3.6 g/dL (2.4-3.5); Glucose 114 mg/dL (80-115); Lipase 18 U/L (8-78); Potassium 5.2 mmol/L (3.5-5.1); Protein, Total 7.4 g/dL (5.8-8.1); Salicylate Less than 8.0 mg/dL (15.0-30.0); Sodium 139 mmol/L (136-145)
[2021-10-12 09:40] LABS: Actual Bicarbonate (HCO3v) 15 mEq/L (22-28); Analyzer IN Cardio ER; Base Excess -6.7 mEq/L (-2.0 to +3.0); Calcium, Ionized (venous) 0.92 mmol/L (1.16-1.32); Chloride (VBG) 108 mmol/L (98-106); Potassium (VBG) 4.15 mmol/L (3.70-5.30); Sodium 137.4 mmol/L (133-146); pH (venous) 7.42 (7.32-7.43)
[2021-10-12 11:51] LABS: Bacteria/HPF None Seen HPF (None Seen); Bilirubin Negative (Negative); Blood, Urine Trace (Negative); Clarity Clear (Clear); Glucose, Urine (Dipstick) Normal (Negative); Ketone, Urine Negative (Negative); Leukocyte Negative Leu/uL (Negative); Nitrite Negative (Negative); Protein, Urine (Dipstick) 20 mg/dL (Neg-Trace); RBC/HPF 0-3 HPF (0-3); Specific Gravity, Urine 1.034 (1.002-1.036); Squamous Epithelial None Seen HPF (0-3); Urobilinogen Normal mg/dL (Less than 2); WBC/HPF 0-3 HPF (0-3)
[2021-10-12 11:59] LABS: Amphetamine Not Detected (NotDetected); Barbiturates Screen Not Detected (NotDetected); Benzodiazepine Screen Not Detected (NotDetected); Cocaine Metabolite Screen Not Detected (NotDetected); Methadone Not Detected (NotDetected); Methamphetamine Not Detected (NotDetected); Opiate Screen Not Detected (NotDetected); Oxycodone Screen Not Detected (NotDetected); Phencyclidine (PCP) Not Detected (NotDetected); THC/Cannabinoid Screen Not Detected (NotDetected); Tricyclic Screen Not Detected (NotDetected)
[2021-10-12 12:10] LABS: Lactic Acid 1.7 mmol/L (0.5-2.2)
[2021-10-12] MEDS ORDERED: Ondansetron PF 4 MG/2 ML Vial IVP PRN (12:41)
[2021-10-12] MEDS ORDERED: Enoxaparin Sodium 40 MG/0.4 ML SYRINGE SC SCH (12:45)
[2021-10-12] MEDS ORDERED: Sodium Bicarbonate 50 MEQ in Sodium Chloride 0.45% 1,000 ML IV SCH (13:00)
[2021-10-12] MEDS ORDERED: Enoxaparin Sodium 40 MG/0.4 ML SYRINGE ONE (14:39)
[2021-10-12] MEDS ORDERED: Vancomycin 1 GM in Premix Bag 1 BAG IVPB SCH (16:15)
[2021-10-12] MEDS ORDERED: Acetaminophen 325 MG TAB ONE (16:24)
[2021-10-12] MEDS: Acetaminophen 325 MG TAB PO PRN ×2 (16:26→21:48)
[2021-10-12 17:51] LABS: SARS-CoV-2 PCR by NAA Not Detected (NotDetected)
[2021-10-12 18:15] VITALS: BMI 25.3
[2021-10-12] MEDS: Dronedarone HCl 400 MG TAB PO SCH (18:48)
[2021-10-12] MEDS ORDERED: levETIRAcetam 500 MG TAB PO SCH (21:00)
[2021-10-12] MEDS ORDERED: Lisinopril 10 MG TAB PO SCH (21:00)
[2021-10-12] MEDS ORDERED: Melatonin 3 MG TAB PO SCH ×2 (21:30→22:00)
[2021-10-12] MEDS: Cefepime 1 GM in Sodium Chloride 0.9% 100 ML IVPB SCH (21:47)
[2021-10-12] MEDS: levETIRAcetam 500 MG TAB PO SCH (21:48)
[2021-10-13 04:45] LABS: #Eosinphils 0.1 thou/uL (0.0-0.7); #Lymphocytes 0.9 thou/uL (1.20-3.40); #Monocytes 0.5 thou/uL (0.11-0.59); #Neutrophils 3.7 thou/uL (1.40-6.50); %Basophils 0.1 % (0.0-1.0); %Eosinophils 2.1 % (0.0-10.0); %Lymphocytes 17.4 % (21.0-51.0); %Monocytes 9.3 % (0.0-10.0); Hemoglobin 13.9 g/dL (14.0-18.0); Mean Corpuscular HGB CONC 33.5 g/dL (32.0-36.0); Mean Corpuscular Hemoglobin 31.6 pg (27.0-31.0); Mean Corpuscular Volume 94.4 fL (78.0-98.0); Mean Platelet Volume 7.9 fL (7.4-10.4); Platelet Count 144 thou/uL (130-400); RBC Distribution Width 12.2 % (11.5-14.5); White Blood Cell (WBC) Count 5.2 thou/uL (4.8-10.8)
[2021-10-13 05:11] LABS: Anion Gap 10 mmol/L (10-20); BUN (Urea Nitrogen) 22 mg/dL (8.4-25.7); Calc. Creatinine Clearance 109 mL/min (70-130); Calcium 8.1 mg/dL (7.8-10.44); Carbon Dioxide 25 mmol/L (23-31); Chloride 105 mmol/L (98-107); Glucose 100 mg/dL (80-115); Potassium 3.4 mmol/L (3.5-5.1); Sodium 137 mmol/L (136-145)
[2021-10-13] MEDS ORDERED: diphenhydrAMINE 25 MG CAP PO PRN (08:34)
[2021-10-13] MEDS ORDERED: Melatonin 3 MG TAB PO PRN (08:37)
[2021-10-13] MEDS ORDERED: Potassium Chloride 20 MEQ TAB PO SCH (08:45)
[2021-10-13] MEDS ORDERED: Enoxaparin Sodium 40 MG/0.4 ML SYRINGE SC SCH (09:00)
[2021-10-13] MEDS: levETIRAcetam 500 MG TAB PO SCH (09:38)
[2021-10-13] MEDS: Cefepime 1 GM in Sodium Chloride 0.9% 100 ML IVPB SCH (09:38)
[2021-10-13] MEDS: Dronedarone HCl 400 MG TAB PO SCH (09:38)
[2021-10-13 11:17] VITALS: BP 117/78; TEMP 97.7
[2021-10-13] MEDS ORDERED: Vancomycin 1.5 GRAM/300 ML BAG 1.5 GM in Premix Bag 1 BAG IVPB SCH (12:00)
== END 2021-10-13 13:42 | disposition home or self-care (01) | DRG 71 ==
LOC: ERS 07:28 → ERHOLD 11:53 → 2NO 17:49
PROVIDERS: ADMIT Internal Medicine; ATTEND Physician Assistant Medical
DX: G93.41 Metabolic encephalopathy (principal); E87.2 Acidosis; Z20.822 Contact with and (suspected) exposure to COVID-19; I48.91 Unspecified atrial fibrillation; E87.5 Hyperkalemia; I10 Essential (primary) hypertension; G40.909 Epilepsy, unspecified, not intractable, without status epilepticus; I69.320 Aphasia following cerebral infarction; Z79.899 Other long term (current) drug therapy; Z87.891 Personal history of nicotine dependence
CPT/HCPCS: 36415; 51701; 70450; 70551; 71045; 80048; 80053; 80306; 80307; 81003; 81015; 82805; 83605; 83690; 84484; 85025; 87040; 93005; 96365; J0692; J1650; J3370; J3490; U0003; U0005

== ENCOUNTER 2022-09-30 15:01 | Inpatient (IN) | payer OTHER ==
[2022-09-30 16:16] LABS: SARS-CoV-2 NAA Rapid Test DETECTED (NotDetected)
[2022-09-30 16:44] LABS: #Lymphocytes 0.7 thou/uL (1.20-3.40); #Monocytes 0.9 thou/uL (0.11-0.59); #Neutrophils 9.1 thou/uL (1.40-6.50); %Basophils 0.1 % (0.0-1.0); %Eosinophils 0.2 % (0.0-10.0); %Lymphocytes 6.6 % (21.0-51.0); %Monocytes 8.4 % (0.0-10.0); %Neutrophils 84.7 % (42.0-75.0); Mean Corpuscular HGB CONC 33.4 g/dL (32.0-36.0); Mean Corpuscular Hemoglobin 31.1 pg (27.0-31.0); Mean Corpuscular Volume 93.3 fl (78.0-98.0); Mean Platelet Volume 9.1 fL (7.4-10.4); Platelet Count 151 10x3/uL (130-400); RBC Distribution Width 11.9 % (11.5-14.5); Red Blood Cell (RBC) Count 5.13 mill/uL (4.70-6.10); White Blood Cell (WBC) Count 10.8 10x3/uL (4.8-10.8)
[2022-09-30 17:04] LABS: ALT (SGPT) 15 U/L (8-55); AST (SGOT) 18 U/L (5-34); Albumin 4.1 g/dL (3.4-4.8); Alkaline Phosphatase 99 U/L (40-110); Anion Gap 14 mmol/L (10-20); BUN (Urea Nitrogen) 19 mg/dL (8.4-25.7); Bilirubin, Total 0.6 mg/dL (0.2-1.2); Calc. Creatinine Clearance 0 mL/min (70-130); Calcium 9.2 mg/dL (7.8-10.44); Carbon Dioxide 22 mmol/L (23-31); Chloride 104 mmol/L (98-107); Estimated GFR 70; Globulin 3.2 g/dL (2.4-3.5); Glucose 96 mg/dL (80-115); Potassium 4.2 mmol/L (3.5-5.1); Protein, Total 7.3 g/dL (5.8-8.1); Sodium 136 mmol/L (136-145)
[2022-09-30] MEDS ORDERED: cefTRIAXone\\ROCEPHIN 2 GM VIAL ONE (18:39)
[2022-09-30] MEDS ORDERED: Ondansetron PF 4 MG/2 ML Vial IVP PRN (19:37)
[2022-09-30] MEDS ORDERED: HYDROcodone/Acetaminophen 5/325 mg Tablet PO PRN (19:37)
[2022-09-30] MEDS ORDERED: HYDROcodone/Acetaminophen 7.5/325 mg Tablet PO PRN (19:37)
[2022-09-30] MEDS ORDERED: Acetaminophen 325 MG TAB PO PRN (19:37)
[2022-09-30] MEDS: Famotidine 20 MG TAB PO SCH (22:12)
[2022-09-30] MEDS: levETIRAcetam 500 MG TAB PO SCH (22:12)
[2022-09-30] MEDS: Melatonin 3 MG TAB PO PRN (22:20)
[2022-10-01 02:21] VITALS: BMI 24.2
[2022-10-01 04:28] LABS: #Lymphocytes 1.4 thou/uL (1.20-3.40); #Neutrophils 5.1 thou/uL (1.40-6.50); %Basophils 0.4 % (0.0-1.0); %Eosinophils 0.5 % (0.0-10.0); %Lymphocytes 18.2 % (21.0-51.0); %Monocytes 13.7 % (0.0-10.0); %Neutrophils 67.2 % (42.0-75.0); Mean Corpuscular HGB CONC 33.4 g/dL (32.0-36.0); Mean Corpuscular Hemoglobin 31.4 pg (27.0-31.0); Mean Corpuscular Volume 93.9 fl (78.0-98.0); Mean Platelet Volume 8.4 fL (7.4-10.4); Platelet Count 155 10x3/uL (130-400); Red Blood Cell (RBC) Count 4.78 mill/uL (4.70-6.10); White Blood Cell (WBC) Count 7.6 10x3/uL (4.8-10.8)
[2022-10-01 04:52] LABS: Anion Gap 12 mmol/L (10-20); BUN (Urea Nitrogen) 17 mg/dL (8.4-25.7); Calc. Creatinine Clearance 100 mL/min (70-130); Calcium 8.7 mg/dL (7.8-10.44); Carbon Dioxide 22 mmol/L (23-31); Chloride 106 mmol/L (98-107); Estimated GFR 89; Glucose 88 mg/dL (80-115); Potassium 3.8 mmol/L (3.5-5.1); Sodium 136 mmol/L (136-145)
[2022-10-01] MEDS: levETIRAcetam 500 MG TAB PO SCH ×2 (09:15→21:00)
[2022-10-01] MEDS: Famotidine 20 MG TAB PO SCH ×2 (09:19→21:00)
[2022-10-01] MEDS: Nortriptyline 10 MG CAP PO SCH (21:00)
[2022-10-01] MEDS: Melatonin 3 MG TAB PO PRN (21:00)
[2022-10-02] MEDS: levETIRAcetam 500 MG TAB PO SCH ×2 (09:27→23:17)
[2022-10-02] MEDS: Famotidine 20 MG TAB PO SCH ×2 (09:28→23:17)
[2022-10-02] MEDS: Nortriptyline 10 MG CAP PO SCH (23:18)
[2022-10-02] MEDS: Melatonin 3 MG TAB PO PRN (23:19)
[2022-10-03 05:31] LABS: Anion Gap 14 mmol/L (10-20); BUN (Urea Nitrogen) 15 mg/dL (8.4-25.7); Calc. Creatinine Clearance 117 mL/min (70-130); Calcium 8.7 mg/dL (7.8-10.44); Carbon Dioxide 23 mmol/L (23-31); Chloride 106 mmol/L (98-107); Estimated GFR 96; Glucose 88 mg/dL (80-115); Magnesium 2.2 mg/dL (1.6-2.6); Potassium 3.6 mmol/L (3.5-5.1); Sodium 139 mmol/L (136-145)
[2022-10-03] MEDS: levETIRAcetam 500 MG TAB PO SCH (08:49)
[2022-10-03] MEDS: Famotidine 20 MG TAB PO SCH (08:50)
[2022-10-03 16:07] VITALS: BP 99/70; TEMP 97.1
[2022-10-04] MEDS ORDERED: FLU VACC QS2022-23(65YR UP)/PF 240 MCG/0.7 ML SYRINGE IM ONE (09:00)
== END 2022-10-03 16:10 | disposition home or self-care (01) | DRG 308 ==
LOC: ERS 15:01 → INTOOBSV 18:11 → 2NO 18:11 → OBSVTOIN 10-01 15:09
PROVIDERS: ADMIT Internal Medicine; ATTEND Internal Medicine
PROC: 8E0ZXY6 Isolation (ICD-10-PCS; principal; 2022-10-01)
DX: I48.21 Permanent atrial fibrillation (principal); U07.1 COVID-19; G93.49 Other encephalopathy; I10 Essential (primary) hypertension; G40.909 Epilepsy, unspecified, not intractable, without status epilepticus; F03.90 Unspecified dementia, unspecified severity, without behavioral disturbance, psychotic disturbance, mood disturbance, and anxiety; R29.6 Repeated falls; Z91.81 History of falling; Z79.899 Other long term (current) drug therapy; Z86.73 Personal history of transient ischemic attack (TIA), and cerebral infarction without residual deficits
CPT/HCPCS: 36415; 70450; 71045; 72125; 80048; 80053; 83735; 83880; 84484; 85025; 93005; 93306; 96365; 96366; 96368; 96372; G0378; J0696; J1650; U0002